=== PATIENT | male | born 1990 | race Caucasian/White ===

== ENCOUNTER 2018-02-28 07:02 | Emergency (ER) | payer OTHER, SELFPAY ==
[2018-02-28] MEDS ORDERED: DOXYCYCLINE 100 MG CAP PO ONE (07:58)
[2018-02-28] MEDS ORDERED: HYDROCODONE/APAP 10/325 TAB ONE (07:58)
--- NOTE | 2018-02-28 08:55 | ER ---
Nurse's Notes [facility] Name: Richard Calderon Age: 27 yrs Sex: Male : 1990 Arrival Date: 02/28/2018 Time: 07:04 Bed 8 Private MD: Jus Velez E Diagnosis: Epididymitis Presentation: 02/28 07:19 Presenting complaint: Patient states: Left testicular pain since this morning, was here 7 April 2016 for same thing, it was acute epididymitis and it feels the same. Transition of care: patient was not received from another setting of care. Onset of symptoms was February 28, 2018. Risk Assessment: Do you want to hurt yourself or someone else? Patient reports no desire to harm self or others. Initial Sepsis Screen: Does the patient meet any 2 criteria? No. Patient's initial sepsis screen is negative. Does the patient have a suspected source of infection? No. Patient's initial sepsis screen is negative. Care prior to arrival: None. 07:19 Method Of Arrival: Ambulatory [facility] er 07:19 Acuity: WILBER 3 jl7 Triage Assessment: 07:21 General: Appears uncomfortable, Behavior is calm, cooperative, appropriate for age. jl7 Pain: Complains of pain in left testicle Pain currently is 8 out of 10 on a pain scale. Historical: - Allergies: 07:21 Sulfa (Sulfonamide Antibiotics); jl7 - Home Meds: 07:21 Lisinopril Oral [Active]; jl7 - PMHx: 07:21 High Cholesterol; Hypertension; seasonal allergies; jl7 - PSHx: 07:21 None; jl7 - Immunization history:: Adult Immunizations not up to date. - Social history:: Smoking status: Patient uses tobacco products, smokes one pack cigarettes per day. - Ebola Screening: : No symptoms or risks identified at this time. Screenin:45 Abuse screen: Denies threats or abuse. Denies injuries from another. Nutritional hb screening: No deficits noted. Tuberculosis screening: No symptoms or risk factors identified. Fall Risk None identified. Assessment: 07:45 General: Appears in no apparent distress. Behavior is calm, cooperative. Pain: Pain hb currently is 8 out of 10 on a pain scale. Neuro: Level of Consciousness is awake, alert, obeys commands, Oriented to person, place, time, situation. Cardiovascular: Capillary refill < 3 seconds Patient's skin is warm and dry. Respiratory: Airway is patent Trachea midline Respiratory effort is even, unlabored, Respiratory pattern is regular, symmetrical. GI: No deficits noted. No signs and/or symptoms were reported involving the gastrointestinal system. : No deficits noted. No signs and/or symptoms were reported regarding the genitourinary system. EENT: No signs and/or symptoms were reported regarding the EENT system. Derm: Skin is pink, warm \T\ dry. Musculoskeletal: No signs and/or symptoms reported regarding the musculoskeletal system. 08:30 Reassessment: Patient appears in no apparent distress at this time. No changes from hb previously documented assessment. Patient and/or family updated on plan of care and expected duration. Pain level reassessed. Patient is alert, oriented x 3, equal unlabored respirations, skin warm/dry/pink. Vital Signs: 07:21 BP 156 / 107; Pulse 77; Resp 16; Temp 98.7; Pulse Ox 98% ; Weight 97.52 kg; Height 6 jl7 ft. (182.88 cm); Pain 8/10; 08:30 BP 145 / 88; Pulse 78; Resp 16; Pulse Ox 100% on R/A; hb 07:21 Body Mass Index 29.16 (97.52 kg, 182.88 cm) jl7 ED Course: 07:04 Patient arrived in ED. am2 07:04 Jus Velez MD is Private Physician. am2 07:21 Triage completed. jl7 07:21 Arm band placed on right wrist. jl7 07:27 [facility] jr8 07:27 Nicholas Salgado MD is Attending Physician. jr8 07:45 Patient has correct armband on for positive identification. Placed in gown. Bed in low hb position. Call light in reach. Side rails up X 1. 07:55 Patient taken to ultrasound. via wheelchair. aa4 07:59 Urine collected: clean catch specimen, clear. dh3 08:20 Ultrasound completed. Patient tolerated well. Patient moved back from ultrasound. aa4 08:53 Alivia Schaeffer MD is Referral Physician. jr8 09:23 No provider procedures requiring assistance completed. Patient did not have IV access hb during this emergency room visit. Administered Medications: 07:59 Drug: [place] 10 mg-325 mg 1 tabs Route: PO; hb 07:59 Drug: Doxycycline 100 mg Route: PO; Outcome: 08:54 Discharge ordered by MD. pathak 09:23 Discharged to home ambulatory. hb 09:23 Condition: stable 09:23 Discharge instructions given to patient, Instructed on discharge instructions, follow up and referral plans. medication usage, Demonstrated understanding of instructions, follow-up care, medications, Prescriptions given X 3. 09:25 Patient left the ED. Signatures: Veena Leal4 Sravan Torre PA PA jr8 Rachel Liriano RN RN Pema Novak RN RN jl7 Veena Sumner am2 Raven Song 3 Corrections: (The following items were deleted from the chart) 07:26 07:19 Presenting complaint: Patient states: Left testicular pain since this morning, jl7 was here April 2016 for same thing, it was acute epididymis and it feels the same jl7
--- NOTE | 2018-02-28 08:56 | EDPHYS ---
Physician Documentation [facility] Name: Richard Calderon Age: 27 yrs Sex: Male : 1990 Arrival Date: 02/28/2018 Time: 07:04 Bed 8 Private MD: Jus Velez E ED Physician Nicholas Salgado HPI: 02/28 07:49 This 27 yrs old Male presents to ER via Ambulatory with complaints of jr8 Testicular Pain. 07:49 The patient presents with scrotal pain, of the left side, in the area of the jr8 epidydimis, with swelling, without erythema, tenderness, that is moderate, in the area of the epidydimis. Onset: The symptoms/episode began/occurred acutely, today. Modifying factors: The symptoms are alleviated by nothing, the symptoms are aggravated by movement, pressure. Associated signs and symptoms: The patient has no apparent associated signs or symptoms. Severity of symptoms: At their worst the symptoms were moderate, in the emergency department the symptoms are unchanged. The patient has experienced a previous episode. The patient has not recently seen a physician. Has had epididymitis in past. Stated that he had sudden onset of testicular pain on left side. Thinks he may have it again. Denies dysuria or trouble urinating . Historical: - Allergies: 07:21 Sulfa (Sulfonamide Antibiotics); jl7 - Home Meds: 07:21 Lisinopril Oral [Active]; jl7 - PMHx: 07:21 High Cholesterol; Hypertension; seasonal allergies; jl7 - PSHx: 07:21 None; jl7 - Immunization history:: Adult Immunizations not up to date. - Social history:: Smoking status: Patient uses tobacco products, smokes one pack cigarettes per day. - Ebola Screening: : No symptoms or risks identified at this time. ROS: 07:49 Eyes: Negative for injury, pain, redness, and discharge, ENT: Negative for injury, jr8 pain, and discharge, Neck: Negative for injury, pain, and swelling, Cardiovascular: Negative for chest pain, palpitations, and edema, Respiratory: Negative for shortness of breath, cough, wheezing, and pleuritic chest pain, Abdomen/GI: Negative for abdominal pain, nausea, vomiting, diarrhea, and constipation, Back: Negative for injury and pain, MS/Extremity: Negative for injury and deformity, Skin: Negative for injury, rash, and discoloration, Neuro: Negative for headache, weakness, numbness, tingling, and seizure. 07:49 : Positive for testicular pain Negative for urinary symptoms, penile discharge, penile pain. Exam: 07:49 Cardiovascular: Regular rate and rhythm with a normal S1 and S2. No gallops, murmurs, jr8 or rubs. Normal PMI, no JVD. No pulse deficits. Respiratory: Lungs have equal breath sounds bilaterally, clear to auscultation and percussion. No rales, rhonchi or wheezes noted. No increased work of breathing, no retractions or nasal flaring. Abdomen/GI: Soft, non-tender, with normal bowel sounds. No distension or tympany. No guarding or rebound. No evidence of tenderness throughout. Back: No spinal tenderness. No costovertebral tenderness. Full range of motion. Skin: Warm, dry with normal turgor. Normal color with no rashes, no lesions, and no evidence of cellulitis. MS/ Extremity: Pulses equal, no cyanosis. Neurovascular intact. Full, normal range of motion. Neuro: Awake and alert, GCS 15, oriented to person, place, time, and situation. Cranial nerves II-XII grossly intact. Motor strength 5/5 in all extremities. Sensory grossly intact. Cerebellar exam normal. Normal gait. 07:49 : CVA tenderness, is absent, Male external genitalia: swelling and tenderness to left testicle. Right testicle of normal appearance and without tenderness. uncircumcised. No penile abnormality noted . Vital Signs: 07:21 BP 156 / 107; Pulse 77; Resp 16; Temp 98.7; Pulse Ox 98% ; Weight 97.52 kg; Height 6 jl7 ft. (182.88 cm); Pain 8/10; 08:30 BP 145 / 88; Pulse 78; Resp 16; Pulse Ox 100% on R/A; hb 07:21 Body Mass Index 29.16 (97.52 kg, 182.88 cm) jl7 MDM: 07:28 Patient medically screened. jr8 08:53 Data reviewed: vital signs, nurses notes, lab test result(s), radiologic studies, jr8 ultrasound. Data interpreted: Pulse oximetry: on room air is 98 %. Interpretation: normal. Counseling: I had a detailed discussion with the patient and/or guardian regarding: the historical points, exam findings, and any diagnostic results supporting the discharge/admit diagnosis, lab results, radiology results, the need for outpatient follow up, a urologist, to return to the emergency department if symptoms worsen or persist or if there are any questions or concerns that arise at home. 02/28 08:09 Order name: Urine Dipstick--Ancillary (enter results) bd 02/28 09:01 Order name: Urine Dipstick-Ancillary; Complete Time: 15:40 [facility] 02/28 07:39 Order name: US Scrotum Testicles jr8 02/28 09:09 Order name: US; Complete Time: 15:40 [facility] 02/28 07:40 Order name: Urine Dipstick-Ancillary (obtain specimen); Complete Time: 08:00 jr8 Administered Medications: 07:59 Drug: [place] 10 mg-325 mg 1 tabs Route: PO; hb 07:59 Drug: Doxycycline 100 mg Route: PO; hb Disposition: 15:27 Co-signature as Attending Physician, Nicholas Salgado MD I agree with the assessment and britni plan of care. Disposition: 02/28/18 08:54 Discharged to Home. Impression: Epididymitis. - Condition is Stable. - Discharge Instructions: Epididymitis. - Prescriptions for Ibuprofen 800 mg Oral Tablet - take 1 tablet by ORAL route every 12 hours As needed take with food; 20 tablet. Tylenol- Codeine #3 300-30 mg Oral Tablet - take 2 tablets by ORAL route every 6 hours As needed; 20 tablet. Doxycycline Monohydrate 100 mg Oral Tablet - take 1 tablet by ORAL route every 12 hours for 10 days; 20 tablet. - Work release form, Medication Reconciliation Form, Thank You Letter, Antibiotic Education, Prescription Opioid Use form. - Follow up: Alivia Schaeffer MD; When: 1 week; Reason: Recheck today's complaints, Continuance of care, Re-evaluation by your physician. - Problem is new. - Symptoms have improved. Signatures: Dispatcher [employer] Nicholas Skinner MD MD cha Roszak, Josh, PA PA jr8 Rachel Liriano, RN RN Pema Becker RN RN jl7 Corrections: (The following items were deleted from the chart) 09:25 08:54 02/28/2018 08:54 Discharged to Home. Impression: Epididymitis. Condition is hb Stable. Forms are Medication Reconciliation Form, Thank You Letter, Antibiotic Education, Prescription Opioid Use. Follow up: Alivia Schaeffer; When: 1 week; Reason: Recheck today's complaints, Continuance of care, Re-evaluation by your physician. Problem is new. Symptoms have improved. jr8
[2018-02-28 09:01] LABS: Urine Blood TRACE (NEG); Urine Glucose NEGATIVE (NEG); Urine Protein NEGATIVE (NEG); Urine Specific Gravity >1.030 (1.005-1.030)
--- NOTE | 2018-02-28 09:08 | RAD REPORT ---
EXAM DESCRIPTION: US - Scrotum Testicles - 02/28/2018 8:16 am CLINICAL HISTORY: left testicle pain COMPARISON: Scrotum Testicles dated 04/13/2016 FINDINGS: The right testicle 4.5 x 2.9 x 2.7 cm. No intratesticular masses or evidence of testicular torsion. The left testicle 4.6 x 3.1 x 2.7 cm. No intratesticular masses or evidence of testicular torsion. The left epididymis is enlarged with increased blood flow. Small amount of free fluid is seen adjacent to the left testicle. IMPRESSION: Left epididymitis is suspected.
[2018-02-28 09:29] VITALS: TEMP 98.7
[2018-02-28 09:30] VITALS: BP 145/88; O2SAT 100
== END 2018-02-28 09:25 | disposition home or self-care (01) ==
LOC: ER 07:02
DX: N45.1 Epididymitis (principal); I10 Essential (primary) hypertension; F17.210 Nicotine dependence, cigarettes, uncomplicated; Z88.2 Allergy status to sulfonamides
CPT/HCPCS: 76870; 81003; 99284

== ENCOUNTER 2019-12-29 23:35 | Emergency (ER) | payer SELFPAY ==
--- NOTE | 2019-12-30 00:39 | EDPHYS ---
Physician Documentation [facility] Name: Richard Calderon Age: 29 yrs Sex: Male : 1990 Arrival Date: 12/29/2019 Time: 23:38 Bed 25 Private MD: ED Physician Rome Srivastava HPI: 12/29 00:31 This 29 yrs old Male presents to ER via Ambulatory with complaints of Neck cp Pain, >24Hrs Old. 00:31 The patient or guardian complains of pain, that is acute. The symptoms are located on cp the left lateral anterior neck. 00:31 Onset: The symptoms/episode began/occurred today. Context: The neck injury/problem cp resulted from from unknown cause. Associated signs and symptoms: Pertinent positives: headache, Pertinent negatives: fever, numbness, sore throat, dysphagia. The pain does not radiate. Historical: - Allergies: 00:16 Sulfa (Sulfonamide Antibiotics); jv1 - Home Meds: 00:16 lisinopril 10 mg oral tab once daily for Hypertension [Active]; jv1 - PMHx: 00:16 High Cholesterol; Hypertension; seasonal allergies; jv1 - PSHx: 00:16 Knee surgery; jv1 - Immunization history:: Adult Immunizations not up to date. - Social history:: Smoking status: Patient uses vapes. ROS: 00:32 Eyes: Negative for injury, pain, redness, and discharge. cp 00:32 Constitutional: Negative for body aches, chills, fever, poor PO intake. 00:32 ENT: Negative for drainage from ear(s), ear pain, sore throat, difficulty swallowing, difficulty handling secretions. 00:32 Neck: Positive for pain at rest, tenderness, of the left lateral anterior neck, Negative for injury or acute deformity, stiffness. 00:32 Cardiovascular: Negative for chest pain. 00:32 Respiratory: Negative for cough, shortness of breath, wheezing. 00:32 Abdomen/GI: Negative for abdominal pain, nausea, vomiting, and diarrhea. 00:32 Skin: Negative for rash. 00:32 Neuro: Positive for headache, Negative for altered mental status, weakness. 00:32 All other systems are negative. Exam: 00:34 Head/Face: Normocephalic, atraumatic. cp 00:34 Constitutional: The patient appears in no acute distress, alert, awake, non-toxic, well developed, well nourished. 00:34 Eyes: Periorbital structures: appear normal, Conjunctiva: normal, no exudate, no injection, Sclera: no appreciated abnormality, Lids and lashes: appear normal, bilaterally. 00:34 ENT: External ear(s): are unremarkable, Ear canal(s): are normal, clear, TM's: dullness, bilaterally, Nose: is normal, Mouth: Lips: moist, Oral mucosa: pink and intact, moist, Posterior pharynx: is normal, airway is patent, no erythema, no exudate, normal sized tonsils, Voice: is normal. 00:34 Neck: ROM/movement: pain, that is mild, left lateral anterior neck. limited range of motion, is not appreciated, nuchal rigidity, is not appreciated, Lymph nodes: no appreciated lymphadenopathy. 00:34 Chest/axilla: Inspection: normal. 00:34 Cardiovascular: Rate: normal. 00:34 Respiratory: the patient does not display signs of respiratory distress, Respirations: normal, no use of accessory muscles, no retractions, labored breathing, is not present. 00:34 Skin: no rash present. Vital Signs: 00:09 BP 121 / 92; Pulse 85; Resp 18; Temp 98.2; Pulse Ox 96% ; Pain 1/10; jv1 00:12 BP 121 / 92; Pulse 85; Resp 18; Temp 98.2; Pulse Ox 96% ; Pain 1/10; jv1 00:50 BP 126 / 79; Pulse 80; Resp 18; Temp 98.1; Pulse Ox 99% ; Pain 1/10; jv1 MDM: 00:30 Patient medically screened. cp 00:36 Differential diagnosis: enlarged lymph node, dental infection, strep throat. cp 00:37 Data reviewed: vital signs, nurses notes, and as a result, I will discharge patient. cp Administered Medications: No medications were administered Disposition: 05:09 Co-signature as Attending Physician, Rome Srivastava MD. mh7 Disposition: 12/30/19 00:38 Discharged to Home. Impression: Neck Pain. - Condition is Stable. - Discharge Instructions: Musculoskeletal Pain. - Prescriptions for Ibuprofen 800 mg Oral Tablet - take 1 tablet by ORAL route every 8 hours As needed take with food; 30 tablet. - Medication Reconciliation Form, Thank You Letter, Antibiotic Education, Prescription Opioid Use form. - Follow up: Private Physician; When: 2 - 3 days; Reason: Recheck today's complaints. - Problem is new. - Symptoms are unchanged. Signatures: Nicholas Davis PA PA cp Vicente, Joyce, RN RN jv1 Rome Srivastava MD MD mh7 Corrections: (The following items were deleted from the chart) 00:51 00:38 12/30/2019 00:38 Discharged to Home. Impression: Neck Pain. Condition is Stable. jv1 Forms are Medication Reconciliation Form, Thank You Letter, Antibiotic Education, Prescription Opioid Use. Follow up: Private Physician; When: 2 - 3 days; Reason: Recheck today's complaints. Problem is new. Symptoms are unchanged. cp
--- NOTE | 2019-12-30 00:39 | ER ---
Nurse's Notes [facility] Name: Richard Calderon Age: 29 yrs Sex: Male : 1990 Arrival Date: 12/29/2019 Time: 23:38 Bed 25 Private MD: Diagnosis: Neck Pain Presentation: 12/29 00:09 Chief complaint: Patient states: pain in the left neck 4/10 highest, also some dizzy jv1 spells per pt report. Coronavirus screen: Client denies travel out of the [place] in the last 14 days. At this time, the client does not indicate any symptoms associated with coronavirus-19. Ebola Screen: Patient negative for fever greater than or equal to 101.5 degrees Fahrenheit, and additional compatible Ebola Virus Disease symptoms Patient denies exposure to infectious person. Patient denies travel to an Ebola-affected area in the 21 days before illness onset. No symptoms or risks identified at this time. Initial Sepsis Screen: Does the patient meet any 2 criteria? No. Patient's initial sepsis screen is negative. Does the patient have a suspected source of infection? No. Patient's initial sepsis screen is negative. Risk Assessment: Do you want to hurt yourself or someone else? Patient reports no desire to harm self or others. Onset of symptoms was December 29, 2019. 00:09 Method Of Arrival: Ambulatory jv1 00:09 Acuity: WILBER 4 jv1 Historical: - Allergies: 00:16 Sulfa (Sulfonamide Antibiotics); jv1 - Home Meds: 00:16 lisinopril 10 mg oral tab once daily for Hypertension [Active]; jv1 - PMHx: 00:16 High Cholesterol; Hypertension; seasonal allergies; jv1 - PSHx: 00:16 Knee surgery; jv1 - Immunization history:: Adult Immunizations not up to date. - Social history:: Smoking status: Patient uses vapes. Screenin:16 Abuse screen: Denies threats or abuse. Nutritional screening: No deficits noted. jv1 Tuberculosis screening: No symptoms or risk factors identified. Fall Risk None identified. Assessment: 00:12 General: Appears in no apparent distress. well groomed, Behavior is calm, cooperative, jv1 appropriate for age. Pain: Complains of pain in left side of the neck Pain does not radiate. Pain currently is 1 out of 10 on a pain scale. Quality of pain is described as aching, Pain began 1 day ago. Neuro: Level of Consciousness is awake, alert, obeys commands, Oriented to person, place, time, situation, Appropriate for age Contract Designer are equal bilaterally Moves all extremities. Gait is steady, Speech is normal, Facial symmetry appears normal, Reports intermittent episodes of dizziness. Cardiovascular: Denies chest pain, Heart tones S1 S2 present Capillary refill < 3 seconds Pulses are all present. Rhythm is regular. Respiratory: Airway is patent. GI: Abdomen is round non-distended, Bowel sounds present X 4 quads. Abd is soft and non tender. : No signs and/or symptoms were reported regarding the genitourinary system. EENT: No signs and/or symptoms were reported regarding the EENT system. Derm: Skin is intact, is healthy with good turgor, Skin is pink, warm \T\ dry. Musculoskeletal: Circulation, motion, and sensation intact. Capillary refill < 3 seconds. 00:20 Reassessment: provider in the room with pt. jv1 00:51 Reassessment: Patient appears in no apparent distress at this time. Patient is alert, jv1 oriented x 3, equal unlabored respirations, skin warm/dry/pink. Patient denies pain at this time. Patient states feeling better. Vital Signs: 00:09 BP 121 / 92; Pulse 85; Resp 18; Temp 98.2; Pulse Ox 96% ; Pain 1/10; jv1 00:12 BP 121 / 92; Pulse 85; Resp 18; Temp 98.2; Pulse Ox 96% ; Pain 1/10; jv1 00:50 BP 126 / 79; Pulse 80; Resp 18; Temp 98.1; Pulse Ox 99% ; Pain 1/10; jv1 ED Course: 12/28 23:38 Patient arrived in ED. bp1 12/29 00:06 Nicholas Davis PA is PHCP. cp 00:06 Rome Srivastava MD is Attending Physician. cp 00:11 Triage completed. jv1 00:17 Arm band placed on right wrist. jv1 00:17 Patient has correct armband on for positive identification. Bed in low position. Call jv1 light in reach. Side rails up X 1. 00:40 No provider procedures requiring assistance completed. jv1 00:50 Patient did not have IV access during this emergency room visit. IV discontinued. jv1 Administered Medications: No medications were administered Outcome: 00:38 Discharge ordered by . sandra 00:50 Discharged to home ambulatory. jv1 00:50 Condition: stable 00:50 Discharge instructions given to patient, Instructed on discharge instructions, follow up and referral plans. medication usage, Demonstrated understanding of instructions, follow-up care, medications, Prescriptions given X 1. 00:51 Patient left the ED. jv1 Signatures: Nicholas Davis PA PA cp Vicente, Joyce, RN RN jv1 Kandis Padilla [facility]
[2019-12-30 01:15] VITALS: BP 126/79; TEMP 98.1; O2SAT 99
== END 2019-12-30 00:51 | disposition home or self-care (01) ==
LOC: ER 23:35
DX: M54.2 Cervicalgia (principal); I10 Essential (primary) hypertension; E78.00 Pure hypercholesterolemia, unspecified; J30.2 Other seasonal allergic rhinitis; Z72.0 Tobacco use; Z88.2 Allergy status to sulfonamides
CPT/HCPCS: 99282

== ENCOUNTER 2020-03-23 02:54 | Emergency (ER) | payer SELFPAY ==
[2020-03-23] MEDS ORDERED: KETOROLAC 30 MG/ML INJ ONE (03:26)
[2020-03-23] MEDS ORDERED: HYDROCODONE/APAP 5/325 MG TAB ONE (03:56)
--- NOTE | 2020-03-23 07:40 | ER ---
Nurse's Notes [facility] Name: Richard Calderon Age: 29 yrs Sex: Male : 1990 Arrival Date: 03/23/2020 Time: 02:55 Bed 7 Private MD: Diagnosis: Epididymitis;Hydrocele, unspecified Presentation: 03/23 03:04 Chief complaint: Patient states: left testicular pain and swelling. Coronavirus screen: rv Client denies travel out of the [place] in the last 14 days. Ebola Screen: No symptoms or risks identified at this time. Initial Sepsis Screen: Does the patient meet any 2 criteria? No. Patient's initial sepsis screen is negative. Does the patient have a suspected source of infection? No. Patient's initial sepsis screen is negative. Risk Assessment: Do you want to hurt yourself or someone else? Patient reports no desire to harm self or others. Onset of symptoms was March 23, 2020 at 02:00. 03:04 Method Of Arrival: Wheelchair rv 03:04 Acuity: WILBER 3 rv Triage Assessment: 03:06 General: Appears uncomfortable, Behavior is calm, cooperative. Pain: Complains of pain rv in pelvis. EENT: No signs and/or symptoms were reported regarding the EENT system. Neuro: Level of Consciousness is awake, alert, obeys commands, Oriented to person, place, time, situation. Cardiovascular: Patient's skin is warm and dry. Respiratory: Airway is patent Respiratory effort is even, unlabored. Derm: Skin is intact. Musculoskeletal:. Historical: - Allergies: 03:06 Sulfa (Sulfonamide Antibiotics); rv - PMHx: 03:06 High Cholesterol; Hypertension; seasonal allergies; rv - PSHx: 03:06 None; rv - Immunization history:: Adult Immunizations up to date. - Social history:: Smoking status: Reported history of juuling and/or vaping. Screenin:07 Abuse screen: Denies threats or abuse. Denies injuries from another. Nutritional rv screening: No deficits noted. Tuberculosis screening: No symptoms or risk factors identified. Fall Risk None identified. Assessment: 03:49 Reassessment: patient is still in pain, 10/18. referred [address] Pierce, ordered [place] PO. rv given as ordered. 05:12 Reassessment: patient is back from ultrasound, tolerated well. awaiting official rv result. pain is decreased. 07:13 Reassessment: Awaiting urine sample and US results, pt updated. jl7 07:34 Reassessment: Dr. Salgado at bedside discussing results and POC. jl7 Vital Signs: 03:04 BP 151 / 97; Pulse 81; Resp 17; Temp 98.6; Pulse Ox 97% ; Weight 99.79 kg; Height 5 ft. rv 11 in. (180.34 cm); Pain 6/10; 03:54 BP 126 / 90; Pulse 79; Resp 17; Pulse Ox 97% on R/A; rv 05:13 BP 141 / 99; Pulse 76; Resp 16; Pulse Ox 100% on R/A; rv 06:21 BP 140 / 96; Pulse 77; Resp 16; Pulse Ox 98% on R/A; rv 07:13 BP 121 / 83; Pulse 84; Resp 17; Pulse Ox 100% ; jl7 03:04 Body Mass Index 30.68 (99.79 kg, 180.34 cm) rv ED Course: 02:55 Patient arrived in ED. am2 02:55 Ian Hartmann RN is Primary Nurse. rv 02:56 Jacob Pierce MD is Attending Physician. tw4 03:06 Triage completed. rv 03:07 Arm band placed on right wrist. Patient placed in the treatment room, on a stretcher, rv Patient notified of wait time. 03:08 Patient has correct armband on for positive identification. Pulse ox on. NIBP on. rv 05:17 US Scrotum Testicles In Process Unspecified. EDMS 07:00 Report received from MYA [place]. jl7 07:16 Attending Physician role handed off by Jacob Pierce MD britni 07:16 Nicholas Salgado MD is Attending Physician. britni 07:30 Urine collected: clean catch specimen, clear. jl7 07:38 Kaleb Coronel MD is Referral Physician. britni 07:50 No provider procedures requiring assistance completed. Patient did not have IV access jl7 during this emergency room visit. Administered Medications: 03:16 Drug: TORadol 60 mg Route: IM; Site: right deltoid; rv 03:34 Follow up: Response: No adverse reaction; Pain is unchanged, physician notified rv 03:45 Drug: [place] 5 mg-325 mg 1 tabs {Note: rass 0.} Route: PO; rv 05:13 Follow up: Response: No adverse reaction; Marked relief of symptoms; Pain is decreased; rv RASS: Drowsy (-1) 07:43 Drug: Rocephin (cefTRIAXone) 1 grams Route: IM; Site: right ventrogluteal; 7 07:56 Follow up: Response: No adverse reaction jl7 07:45 Drug: Zithromax 1 grams Route: PO; jl7 07:56 Follow up: Response: No adverse reaction jl Outcome: 07:39 Discharge ordered by . britni 07:56 Discharged to home ambulatory. jl7 07:56 Condition: stable 07:56 Discharge instructions given to patient, Instructed on discharge instructions, follow up and referral plans. medication usage, Demonstrated understanding of instructions, follow-up care, Prescriptions given X 2. 07:56 Patient left the ED. jl7 Signatures: Dispatcher [employer] EDMS Nicholas Salgado MD MD cha Leal, Jahala, RN RN jl7 Veena Sumner am2 Jacob Pierce MD MD tw4 Ian Hartmann, RN RN rv
--- NOTE | 2020-03-23 07:40 | EDPHYS ---
Physician Documentation [facility] Name: Richard Calderon Age: 29 yrs Sex: Male : 1990 Arrival Date: 03/23/2020 Time: 02:55 Bed 7 Private MD: JEAN Physician Nicholas Salgado HPI: 03/23 03:19 This 29 yrs old Male presents to ER via Wheelchair with complaints of tw4 Testicular Pain. 03:19 The patient presents with scrotal pain. Onset: The symptoms/episode began/occurred tw4 today. Modifying factors: The symptoms are alleviated by nothing, the symptoms are aggravated by nothing. The patient has not experienced similar symptoms in the past. Historical: - Allergies: 03:06 Sulfa (Sulfonamide Antibiotics); rv - PMHx: 03:06 High Cholesterol; Hypertension; seasonal allergies; rv - PSHx: 03:06 None; rv - Immunization history:: Adult Immunizations up to date. - Social history:: Smoking status: Reported history of juuling and/or vaping. ROS: 03:19 Constitutional: Negative for fever, chills, and weight loss, Eyes: Negative for injury, tw4 pain, redness, and discharge, Cardiovascular: Negative for chest pain, palpitations, and edema, Respiratory: Negative for shortness of breath, cough, wheezing, and pleuritic chest pain, Abdomen/GI: Negative for abdominal pain, nausea, vomiting, diarrhea, and constipation, Back: Negative for injury and pain, Skin: Negative for injury, rash, and discoloration, Neuro: Negative for headache, weakness, numbness, tingling, and seizure. Exam: 03:19 Constitutional: This is a well developed, well nourished patient who is awake, alert, tw4 and in no acute distress. Head/Face: Normocephalic, atraumatic. Cardiovascular: Regular rate and rhythm with a normal S1 and S2. No gallops, murmurs, or rubs. Normal PMI, no JVD. No pulse deficits. Respiratory: Lungs have equal breath sounds bilaterally, clear to auscultation and percussion. No rales, rhonchi or wheezes noted. No increased work of breathing, no retractions or nasal flaring. Abdomen/GI: Soft, non-tender, with normal bowel sounds. No distension or tympany. No guarding or rebound. No evidence of tenderness throughout. Back: No spinal tenderness. No costovertebral tenderness. Full range of motion. 03:45 : Male external genitalia: tenderness, of the left testicle is noted. tw4 Vital Signs: 03:04 BP 151 / 97; Pulse 81; Resp 17; Temp 98.6; Pulse Ox 97% ; Weight 99.79 kg; Height 5 ft. rv 11 in. (180.34 cm); Pain 6/10; 03:54 BP 126 / 90; Pulse 79; Resp 17; Pulse Ox 97% on R/A; rv 05:13 BP 141 / 99; Pulse 76; Resp 16; Pulse Ox 100% on R/A; rv 06:21 BP 140 / 96; Pulse 77; Resp 16; Pulse Ox 98% on R/A; rv 07:13 BP 121 / 83; Pulse 84; Resp 17; Pulse Ox 100% ; jl7 03:04 Body Mass Index 30.68 (99.79 kg, 180.34 cm) rv MDM: 02:56 Patient medically screened. tw4 03:19 Differential diagnosis: nonspecific abdominal pain, appendicitis, urinary retention. tw4 Data reviewed: vital signs, nurses notes. Data interpreted: Pulse oximetry: Interpretation: normal. Counseling: I had a detailed discussion with the patient and/or guardian regarding: the historical points, exam findings, and any diagnostic results supporting the discharge/admit diagnosis. 07:36 ED course: abx treatment, nsaids, rest, elevation/support, follow up uro. [facility] 03/23 07:36 Order name: Urine Culture [facility] 03/23 02:57 Order name: US Scrotum Testicles [facility] 03/23 02:57 Order name: Urine Dipstick-Ancillary (obtain specimen); Complete Time: 07:34 tw4 Administered Medications: 03:16 Drug: TORadol 60 mg Route: IM; Site: right deltoid; rv 03:34 Follow up: Response: No adverse reaction; Pain is unchanged, physician notified rv 03:45 Drug: [place] 5 mg-325 mg 1 tabs {Note: rass 0.} Route: PO; rv 05:13 Follow up: Response: No adverse reaction; Marked relief of symptoms; Pain is decreased; rv RASS: Drowsy (-1) 07:43 Drug: Rocephin (cefTRIAXone) 1 grams Route: IM; Site: right ventrogluteal; jl7 07:56 Follow up: Response: No adverse reaction jl7 07:45 Drug: Zithromax 1 grams Route: PO; 7 07:56 Follow up: Response: No adverse reaction jl7 Disposition: 03/23/20 07:39 Discharged to Home. Impression: Epididymitis, Hydrocele, unspecified. - Condition is Stable. - Discharge Instructions: Epididymitis, Testicular Self-Exam, Hydrocele, Adult. - Prescriptions for Ibuprofen 600 mg Oral Tablet - take 1 tablet by ORAL route every 6 hours As needed take with food; 20 tablet. Doxycycline Hyclate 100 mg Oral Tablet - take 1 tablet by ORAL route every 12 hours; 20 tablet. - Medication Reconciliation Form, Thank You Letter, Antibiotic Education, Prescription Opioid Use form. - Follow up: Private Physician; When: 2 - 3 days; Reason: Recheck today's complaints, Continuance of care, Re-evaluation by your physician. Follow up: Kaleb Coronel MD; When: 2 - 3 days; Reason: Recheck today's complaints, Re-evaluation by your physician. - Problem is new. - Symptoms have improved. Signatures: Dispatcher [employer] EDMS Nicholas Salgado MD MD cha Leal, Jahala, RN RN jl7 Jacob Pierce MD MD tw4 Ian Hartmann, RN RN rv Corrections: (The following items were deleted from the chart) 07:56 07:39 03/23/2020 07:39 Discharged to Home. Impression: Epididymitis; Hydrocele, jl7 unspecified. Condition is Stable. Forms are Medication Reconciliation Form, Thank You Letter, Antibiotic Education, Prescription Opioid Use. Follow up: Private Physician; When: 2 - 3 days; Reason: Recheck today's complaints, Continuance of care, Re-evaluation by your physician. Follow up: Kaleb Coronel; When: 2 - 3 days; Reason: Recheck today's complaints, Re-evaluation by your physician. Problem is new. Symptoms have improved. britni
[2020-03-23] MEDS ORDERED: WATER FOR INJ,STERILE 10 ML ONE (07:51)
[2020-03-23] MEDS ORDERED: AZITHROMYCIN 250 MG TAB ONE (07:51)
[2020-03-23] MEDS ORDERED: CEFTRIAXONE 1000 MG/VIAL ONE (07:51)
--- NOTE | 2020-03-23 10:58 | RAD REPORT ---
EXAM DESCRIPTION: US - Scrotum Testicles - 03/23/2020 5:16 am CLINICAL HISTORY: PAIN COMPARISON: Scrotum Testicles dated 02/28/2018 FINDINGS: Preliminary findings were provided at the time of the study. Small left-sided hydrocele is present. Doppler evaluation shows a normal, symmetric blood flow patter n in each testicle. No focal testicular mass lesions seen. Left epididymis is enlarged and hyperemic relative to the right. Preliminary findings provided at the time of the study. IMPRESSION: Enlarged and hyperemic left epididymis suspicious for epididymitis. No testicular abnormalities identified. Small left hydrocele.
[2020-03-26 22:49] VITALS: TEMP 98.6
[2020-03-26 22:57] VITALS: BP 121/83; O2SAT 100
== END 2020-03-23 07:56 | disposition home or self-care (01) ==
LOC: ER 02:54
DX: N45.1 Epididymitis (principal); N43.3 Hydrocele, unspecified; I10 Essential (primary) hypertension; Z88.2 Allergy status to sulfonamides
CPT/HCPCS: 76870; 87086; 87088; 96372; 99284

== ENCOUNTER 2021-10-16 09:28 | Emergency (ER) | payer BC, SELFPAY ==
--- NOTE | 2021-10-16 10:03 | RAD REPORT ---
EXAM DESCRIPTION: RAD - Chest Single View - 10/16/2021 9:47 am CLINICAL HISTORY: CHEST PAIN Chest pain. COMPARISON: Chest Single View dated 09/07/2016; CHEST PA AND LAT 2 VIEW dated 08/26/2010 FINDINGS: Portable technique limits examination quality. The lungs are grossly clear. The heart is normal in size. No displaced fractures. IMPRESSION: No acute intrathoracic process suspected.
[2021-10-16 11:34] LABS: Absolute Lymphocytes (CBC) 1.9 K/uL (0.7-4.9); Hematocrit 44.7 % (39.6-49.0); Lymphocytes % 31.2 % (15.3-44.8); MCV 88.9 fL (80-100); MPV 7.2 fL (7.6-11.3); RBC Red Blood Cell Count 5.03 M/uL (4.33-5.43)
[2021-10-16] MEDS ORDERED: ASPIRIN 81 MG CHEWABLE TABLET ONE (11:40)
[2021-10-16] MEDS ORDERED: NA CHLORIDE 0.9% 1,000 ML ONE (11:40)
[2021-10-16 11:53] LABS: Potassium 3.6 mmol/L (3.5-5.1); Troponin High Sensitivity 7.7 pg/mL (<58.9)
--- NOTE | 2021-10-16 12:04 | ER ---
Nurse's Notes [facility] Name: Richard Calderon Age: 30 yrs Sex: Male : 1990 Arrival Date: 10/16/2021 Time: 09:33 Bed 14 Private MD: Diagnosis: Chest pain, unspecified;Kidney stone Presentation: 10/16 11:38 Chief complaint: Patient states: Left sided CP x 3 days, right flank pain x 3 weeks, jl7 had CT done today and was informed of right side kidney stone. Coronavirus screen: At this time, the client does not indicate any symptoms associated with coronavirus-19. Ebola Screen: No symptoms or risks identified at this time. Initial Sepsis Screen: Does the patient meet any 2 criteria? No. Patient's initial sepsis screen is negative. Does the patient have a suspected source of infection? No. Patient's initial sepsis screen is negative. Risk Assessment: Do you want to hurt yourself or someone else? Patient reports no desire to harm self or others. Onset of symptoms was October 13, 2021. Care prior to arrival: None. 11:38 Method Of Arrival: Ambulatory [facility] 11:38 Acuity: WILBER 3 jl7 Triage Assessment: 11:40 General: Appears in no apparent distress. uncomfortable, Behavior is calm, cooperative, jl7 appropriate for age. Pain: Complains of pain in right flank Pain currently is 2 out of 10 on a pain scale. at worst was 4 out of 10 on a pain scale. Pain: Complains of pain in left breast Pain currently is 2 out of 10 on a pain scale. at worst was 8 out of 10 on a pain scale. Neuro: Level of Consciousness is awake, alert, obeys commands, Oriented to person, place, time, situation. Cardiovascular: Patient's skin is warm and dry. Respiratory: Airway is patent Respiratory effort is even, unlabored, Respiratory pattern is regular, symmetrical. : Denies burning with urination. Derm: Skin is pink, warm \T\ dry. Historical: - Allergies: 11:40 Sulfa (Sulfonamide Antibiotics); jl7 - Home Meds: 11:40 amlodipine oral [Active]; atorvastatin oral [Active]; jl7 - PMHx: 11:40 High Cholesterol; Hypertension; seasonal allergies; jl7 - PSHx: 11:40 Right knee; jl7 - Immunization history:: Adult Immunizations not up to date. - Social history:: Smoking status: Patient denies any tobacco usage or history of. Screenin:25 Abuse screen: Denies threats or abuse. Denies injuries from another. Nutritional jg9 screening: No deficits noted. Tuberculosis screening: No symptoms or risk factors identified. Fall Risk None identified. Assessment: 12:00 Pain: Complains of pain in anterior aspect of left upper chest Pain does not radiate. jg9 Pain began. 12:00 Reassessment: Patient and/or family updated on plan of care and expected duration. Pain jg9 level reassessed. Patient is alert, oriented x 3, equal unlabored respirations, skin warm/dry/pink. patient resting in bed in no distress, still reports pain 3/10 to left chest with deep breathing-otherwise stable, vss. Vital Signs: 11:38 BP 146 / 107; Pulse 87; Resp 17; Temp 99; Pulse Ox 100% ; Weight 97.98 kg; Height 5 ft. jl7 11 in. (180.34 cm); Pain 2/10; 12:15 BP 124 / 88; Pulse 72; Resp 12 S; Pulse Ox 100% on R/A; Pain 3/10; jg9 11:38 Body Mass Index 30.13 (97.98 kg, 180.34 cm) jl7 ED Course: 09:33 Patient arrived in ED. am2 09:38 Cristino Marvin DO is Attending Physician. ms3 09:49 XRAY Chest (1 view) In Process Unspecified. EDMS 10:43 Patient has correct armband on for positive identification. mb7 10:43 EKG done, by ED staff, reviewed by Cristino Marvin DO. mb7 11:16 Inserted saline lock: 20 gauge in right antecubital area, using aseptic technique. tp1 Blood collected. 11:40 Triage completed. jl7 11:40 Arm band placed on right wrist. jl7 12:00 Client placed on continuous cardiac and pulse oximetry monitoring. NIBP monitoring jg9 applied. 12:00 No provider procedures requiring assistance completed. Patient maintains SpO2 jg9 saturation greater than 95% on room air. 12:03 Rolando Tobin MD is Referral Physician. ms3 12:24 Sutton, Macarena, RN is Primary Nurse. jg9 12:39 IV discontinued. jg9 Administered Medications: 11:37 Drug: Aspirin Chewable Tablet 324 mg Route: PO; 7 12:27 Follow up: Response: No adverse reaction jg9 11:37 Drug: NS 0.9% 1000 ml Route: IV; Rate: 1 bolus; Site: right antecubital; 7 12:27 Follow up: IV Status: Completed infusion; IV Intake: 800ml jg9 Medication: 12:26 VIS not applicable for this client. jg9 Intake: 12:27 IV: 800ml; Total: 800ml. jg9 Outcome: 12:04 Discharge ordered by . ms3 12:38 Discharged to home ambulatory. jg9 12:38 Condition: stable 12:38 Discharge instructions given to patient, Instructed on discharge instructions, follow up and referral plans. Demonstrated understanding of instructions, follow-up care. 12:39 Patient left the ED. jg9 Signatures: Dispatcher [employer] EDMS Pema Novak RN RN jl7 Veena Sumner am2 Cristino Marvin DO DO ms3 Stephanie Santana tp1 Radha Leger mb7 Macarena Sutton, RN RN jg9
--- NOTE | 2021-10-16 12:04 | EDPHYS ---
Physician Documentation [facility] Name: Richard Calderon Age: 30 yrs Sex: Male : 1990 Arrival Date: 10/16/2021 Time: 09:33 Bed 14 Private MD: ED Physician Cristino Marvin HPI: 10/16 12:04 This 30 yrs old Male presents to ER via Ambulatory with complaints of Chest Pain, Flank ms3 Pain. 12:04 The patient or guardian reports chest pain that is located primarily in the substernal ms3 area, anterior aspect of left upper chest. The pain does not radiate. Associated signs and symptoms: Pertinent negatives: cough, diaphoresis, nausea, vomiting. The chest pain is described as sharp. Duration: The patient or guardian reports a single episode, that is still ongoing, and unchanged. Modifying factors: The symptoms are alleviated by nothing. the symptoms are aggravated by nothing. Severity of pain: At its worst the pain was mild in the emergency department the pain is unchanged. Historical: - Allergies: 11:40 Sulfa (Sulfonamide Antibiotics); jl7 - Home Meds: 11:40 amlodipine oral [Active]; atorvastatin oral [Active]; jl7 - PMHx: 11:40 High Cholesterol; Hypertension; seasonal allergies; jl7 - PSHx: 11:40 Right knee; jl7 - Immunization history:: Adult Immunizations not up to date. - Social history:: Smoking status: Patient denies any tobacco usage or history of. ROS: 12:04 Constitutional: Negative for fever, and chills. Neck: Negative for injury, pain, and ms3 swelling, Respiratory: Negative for shortness of breath, cough, wheezing, and pleuritic chest pain, Abdomen/GI: Negative for abdominal pain, nausea, vomiting, diarrhea, and constipation, MS/Extremity: Negative for injury and deformity. 12:04 Cardiovascular: Positive for chest pain. 12:04 Back: Positive for flank pain, on the right. 12:04 All other systems are negative. Exam: 10:38 ECG was reviewed by the Attending Physician. ms3 12:04 Constitutional: This is a well developed, well nourished patient who is awake, alert, ms3 and in no acute distress. Head/Face: Normocephalic, atraumatic. Neck: Trachea midline, no cervical lymphadenopathy. Supple, full range of motion without nuchal rigidity, or vertebral point tenderness. No Meningismus. Chest/axilla: Normal chest wall appearance and motion. Nontender with no deformity. Cardiovascular: Regular rate and rhythm with a normal S1 and S2. No gallops, murmurs, or rubs. Normal PMI, no JVD. No pulse deficits. Respiratory: Lungs have equal breath sounds bilaterally, clear to auscultation and percussion. No rales, rhonchi or wheezes noted. No increased work of breathing, no retractions or nasal flaring. Abdomen/GI: Soft, non-tender, with normal bowel sounds. No distension or tympany. No guarding or rebound. No evidence of tenderness throughout. Skin: Warm, dry with normal turgor. Normal color with no rashes, no lesions, and no evidence of cellulitis. MS/ Extremity: Pulses equal, no cyanosis. Neurovascular intact. Full, normal range of motion. Psych: Awake, alert, with orientation to person, place and time. Behavior, mood, and affect are within normal limits. Vital Signs: 11:38 BP 146 / 107; Pulse 87; Resp 17; Temp 99; Pulse Ox 100% ; Weight 97.98 kg; Height 5 ft. jl7 11 in. (180.34 cm); Pain 2/10; 12:15 BP 124 / 88; Pulse 72; Resp 12 S; Pulse Ox 100% on R/A; Pain 3/10; jg9 11:38 Body Mass Index 30.13 (97.98 kg, 180.34 cm) jl7 MDM: 09:38 Patient medically screened. ms3 12:08 Differential diagnosis: abnormal EKG, acute myocardial infarction, coronary artery ms3 disease chest wall pain. HEART Score: History: Slightly Suspicious (0), ECG: Normal (0), Age: < or = 45 years (0), Risk Factors: 1 or 2 risk factors (1), Troponin: < or = 1 x Normal Limit (0), Total Score = 1. Data reviewed: vital signs, nurses notes, lab test result(s), EKG, radiologic studies, and as a result, I will discharge patient. Counseling: I had a detailed discussion with the patient and/or guardian regarding: the historical points, exam findings, and any diagnostic results supporting the discharge/admit diagnosis, lab results, radiology results, the need for outpatient follow up, to return to the emergency department if symptoms worsen or persist or if there are any questions or concerns that arise at home. ED course: . 12:16 ED course: Discussed chest x-ray, labs, EKG, physical exam findings with patient. ms3 Patient to follow-up with primary care physician in 2 to 3 days. Patient understands and agrees with plan. All questions were answered. Return precautions discussed include worsening symptoms, or any other concerns. On reevaluation patient is improved, alert and oriented x4, no apparent distress, nontoxic, ambulatory in emergency department.. 10/16 09:41 Order name: Basic Metabolic Panel; Complete Time: 11:58 ms3 10/16 09:41 Order name: CBC with Diff; Complete Time: 11:58 ms3 10/16 09:41 Order name: Troponin HS; Complete Time: 11:58 ms3 10/16 09:41 Order name: XRAY Chest (1 view); Complete Time: 11:58 ms3 10/16 09:41 Order name: EKG; Complete Time: 09:41 ms3 10/16 09:41 Order name: Cardiac monitoring; Complete Time: 10:44 ms3 10/16 09:41 Order name: EKG - Nurse/Tech; Complete Time: 10:43 ms3 10/16 09:41 Order name: IV Saline Lock; Complete Time: 11:27 ms3 10/16 09:41 Order name: Labs collected and sent; Complete Time: 11:27 ms3 10/16 09:41 Order name: O2 Per Protocol; Complete Time: 10:44 ms3 10/16 09:41 Order name: O2 Sat Monitoring; Complete Time: 10:44 ms3 EC:38 Rate is 69 beats/min. Rhythm is regular. QRS [place] is Normal. [place] interval is normal. ms3 Clinical impression: Normal ECG. Interpreted by me. Reviewed by me. Administered Medications: 11:37 Drug: Aspirin Chewable Tablet 324 mg Route: PO; jl7 12:27 Follow up: Response: No adverse reaction jg9 11:37 Drug: NS 0.9% 1000 ml Route: IV; Rate: 1 bolus; Site: right antecubital; jl7 12:27 Follow up: IV Status: Completed infusion; IV Intake: 800ml jg9 Disposition Summary: 10/16/21 12:04 Discharge Ordered Location: Home ms3 Condition: Stable ms3 Diagnosis - Chest pain, unspecified ms3 - Kidney stone ms3 Followup: ms3 - With: Rolando Tobin MD - When: 2 - 3 days - Reason: Re-evaluation by your physician Discharge Instructions: - Discharge Summary Sheet ms3 - Nonspecific Chest Pain, Adult ms3 Forms: - Medication Reconciliation Form ms3 - Thank You Letter ms3 - Antibiotic Education ms3 - Prescription Opioid Use ms3 Signatures: Dispatcher [employer] Pema Foy, RN RN jl7 Cristino Marvin DO DO ms3 Macarena Sutton RN jg9
[2021-10-16 13:07] VITALS: TEMP 99; O2SAT 100
[2021-10-16 13:09] VITALS: BP 124/88
--- NOTE | 2021-10-19 13:56 | EKG ---
Test Date: 2021-10-16 Test Time: 10:38:05 Washing Tub Operator: MB MEASUREMENT RESULTS: Intervals: Rate: 69 LA: 178 QRSD: 102 QT: 380 QTc: 407 [place]: P: 75 LA: 178 QRS: 83 T: 53 INTERPRETIVE STATEMENTS: Normal sinus rhythm Normal ECG Compared to ECG 09/08/2016 03:27:54 No significant changes Electronically Signed On 10-19-21 13:49:44 CDT by Cesar Smith
== END 2021-10-16 12:39 | disposition home or self-care (01) ==
LOC: ER 09:28
DX: R07.89 Other chest pain (principal); N20.0 Calculus of kidney; I10 Essential (primary) hypertension; E78.00 Pure hypercholesterolemia, unspecified; Z88.2 Allergy status to sulfonamides
CPT/HCPCS: 85025; 80048; 36415; 84484; 71045; J7030; 93005

== ENCOUNTER 2023-03-15 05:19 | Emergency (ER) | payer BC ==
--- OUTSIDE RECORDS SUMMARY | 2023-03-15 05:24 | XMS REPORT | Continuity of Care Document ---
:1990 Author Organization [facility] t Address [address] [place] [address] [address] [place] [address] Care Team Providers Name Role Phone Roque Sanchez Primary Care Physician Roque Loving Attending Clinician Unavailable Rolando Tobin Attending Clinician Unavailable Carlos Alberto ARIZMENDI, Sendil K.H. Attending Clinician CARLOS ALBERTO, SENDIL K.H. Attending Clinician Unavailable Doctor Unassigned, [place] Attending Clinician Unavailable Christ Richardson MD Attending Clinician CHRIST RICHARDSON Attending Clinician Unavailable CARLOS ALBERTO, SENDIL K.H. Admitting Clinician Unavailable Payers Payer Name Policy Type Policy Number Effective Date Expiration Date S ource Problems Condition Condition Condition Status Onset Resolution Last Treating Co mments Source Name Details Category Date Date Treatment Clinician Date No known No known Disease Unive rs active active ity of problems problems [facility] [id number] Epididymit Problem Com mon is Spirit - [facility] [id number] Right Problem Common nephrolith Spirit iasis [facility] [id number] Urethritis Problem Com mon [facility] [id number] Right Problem Common flank pain [facility] [id number] Lower Problem Common urinary Spirit tract - [facility] symptoms (LUTS) [facility] [id number] Nonspecifi Problem Com mon c Spirit urethritis - [facility] [id number] Mycoplasma Problem Co mmon infection, Spirit unspecifie - [facility] d site [facility] [id number] Left Problem Commo n [id number] testicular Spiri t pain - [facility] [id number] Right Problem Commo n [id number] testicular Spiri t pain - 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 Allergies, Adverse Reactions, Alerts Allergy Allergy Status Severity Reaction(s) Onset Inactive Treating Comm ents Source Name Type Date Date Clinician Sulfa Propensi Active Nausea 2021-04 Univers (Sulfona ty to and/or 1-21 ity of mide adverse Vomiting 00:00: [place] Antibiot reaction 00 Medica l ics) s Branch SULFA Drug Active N/V 2021-04 Univers (SULFONA Class 1-21 ity of MIDE 00:00: [place] ANTIBIOT 00 Medical ICS) Branch NO KNOWN Drug Active Univers ALLERGIE Class ity of S [facility] Social History Social Habit Start Date Stop Date Quantity Comments Source Gender identity Universit y [facility] of tobacco Cigarette Smoker University of use [facility] Exposure to 2022-05-04 2022-05-14 Not sure [facility] SARS-CoV-2 (event) 00:00:00 08:39:00 [facility] History of Social 2022-05-14 2022-05-14 Univers ity of function 00:00:00 00:00:00 [facility] Tobacco use and 2022-04-02 2022-04-02 Smokeless Universit y of exposure 00:00:00 00:00:00 tobacco non-user Formerly [facility] Sex Assigned At [birth year] Universit y of 00:00:00 00:00:00 [facility] Smoking Status Start Date Stop Date Source Tobacco smoking [facility] [place] [facility] xa consumption unknown Medical Bran ch Ex-smoker 2022-04-02 00:00:00 2022-04-02 [facility] 00:00:00 [facility] Medications Ordered Filled Start Stop Current Ordering Indication Dosage Frequency Signature Comments Components Source Medication Medication Date Date Medication? Clinician (SIG) Name Name METOPROLOL Yes [id number] 25mg TAKE 1 U nivers SUCCINATE 8-25 TABLET BY ity o f XL 25 mg 24 00:[place] 00 THE Medical MORNING Branch AND 1 TABLET IN THE EVENING METOPROLOL 2022-0 Yes [id number] 25mg TAKE 1 U nivers SUCCINATE 6-28 TABLET BY ity o f XL 25 mg 24 00:[place] 00 THE Medical MORNING Branch AND 1 TABLET IN THE EVENING METOPROLOL 2022-0 2022- No [id number] 25mg TAKE 1 Univers SUCCINATE 6-28 08-25 TABLET BY ity of XL 25 mg 24 00:00: 00:[place] :00 THE Medical MORNING Branch AND 1 TABLET IN THE EVENING metoprolol 2022-0 Yes [id number] 25mg Take 1 U nivers succinate 1-30 tablet by ity o f XL 25 mg 24 [place] the Medical morning Branch and 1 tablet in the evening. metoprolol 2022-0 Yes [id number] 25mg Take 1 U nivers succinate 1-30 tablet by ity o f XL 25 mg 24 [place]: [place] 00 the Medical morning Branch and 1 tablet in the evening. metoprolol 2022-0 Yes [id number] 25mg Take 1 U nivers succinate 1-30 tablet by ity o f XL 25 mg 24 [place]: [place] 00 the Medical morning Branch and 1 tablet in the evening. metoprolol 2022-0 Yes [id number] 25mg Take 1 U nivers succinate 1-30 tablet by ity o f XL 25 mg 24 [place]: [place] 00 the Medical morning Branch and 1 tablet in the evening. metoprolol 2022-0 Yes [id number] 25mg Take 1 U nivers succinate 1-30 tablet by ity o f XL 25 mg 24 [place]: [place] the Medical morning Branch and 1 tablet in the evening. metoprolol 2022-0 2022- No [id number] 25mg Take 1 Univers succinate 1-30 06-28 tablet by ity of XL 25 mg 24 00:00: 00:00 [place] :00 the Medical morning Branch and 1 tablet in the evening. atorvastati 2022-0 Yes 40mg Take 40 mg Univers n 40 mg 1-17 by mouth ity of tablet 00:00: in the [place] 00 morning. Medical Branch losartan 50 2022-0 Yes 50mg Take 50 mg Univers mg tablet 1-17 by mouth ity of 00:00: in the [place] 00 morning. Medical Branch atorvastati 2022-0 Yes 40mg Take 40 mg Univers n 40 mg 1-17 by mouth ity of tablet 00:00: in the [place] 00 morning. Medical Branch losartan 50 2022-0 Yes 50mg Take 50 mg Univers mg tablet 1-17 by mouth ity of 00:00: in the [place] 00 morning. Medical Branch atorvastati 2022-0 Yes 40mg Take 40 mg Univers n 40 mg 1-17 by mouth ity of tablet 00:00: in the [place] 00 morning. Medical Branch losartan 50 2022-0 Yes 50mg Take 50 mg Univers mg tablet 1-17 by mouth ity of 00:00: in the [place] 00 morning. Medical Branch atorvastati 2022-0 Yes 40mg Take 40 mg Univers n 40 mg 1-17 by mouth ity of tablet 00:00: in the [place] 00 morning. Medical Branch losartan 50 2022-0 Yes 50mg Take 50 mg Univers mg tablet 1-17 by mouth ity of 00:00: in the [place] 00 morning. Medical Branch atorvastati 2022-0 Yes 40mg Take 40 mg Univers n 40 mg 1-17 by mouth ity of tablet 00:00: in the [place] 00 morning. Medical Branch losartan 50 2022-0 Yes 50mg Take 50 mg Univers mg tablet 1-17 by mouth ity of 00:00: in the [place] 00 morning. Medical Branch No known 2021-04 No No known Unive rs medications 2-23 medication it y of 13:11: s [address] No known 2021-04 No No known Unive rs medications 2-23 medication it y of 13:11: [address] No known 2021-04 No No known Unive rs medications 1-21 medication it y of 09:55: s [place] [address] Medical Branch No known 2021-04 No No known Unive rs medications 1-21 medication it y of 09:55: [place] [address] Medical [place] Doxycycline Doxycycline 2021- 202- No 1{capsu BID Doxycyclin Hyclate 100 Hyclate 100 9-13 10-11 le} e Hyclate MG MG 00:00: 00:00 100 MG 00 :00 Doxycycline Doxycycline 2021-0 2- No 1{capsu BID Doxycyclin Hyclate 100 Hyclate 100 12-22 le} e Hyclate MG MG 00:00: 00:00 100 MG 00 :00 Alfuzosin Alfuzosin 2021-0 2023- No 1{table QD Alfuzosin HCl ER 10 HCl ER 10 10-29 t_immed HCl ER 10 MG MG 00:00: 00:00 iately_ MG 00 :00 after_t he_same _meal} Alfuzosin Alfuzosin 2021-3- No 1{table QD Alfuzosin HCl ER 10 HCl ER 10 10-29 t_immed HCl ER 10 MG MG 00:00: 00:00 iately_ MG 00 :00 after_t he_same _meal} Alfuzosin Alfuzosin 2021-3- No 1{table QD Alfuzosin HCl ER 10 HCl ER 10 10-29 t_immed HCl ER 10 MG MG 00:00: 00:00 iately_ MG 00 :00 after_t he_same _meal} Alfuzosin Alfuzosin 2021-3- No 1{table QD Alfuzosin HCl ER 10 HCl ER 10 10-29 t_immed HCl ER 10 MG MG 00:00: 00:00 iately_ MG 00 :00 after_t he_same _meal} Alfuzosin Alfuzosin 2021-0 3- No 1{table QD Alfuzosin HCl ER 10 HCl ER 10 10-29 t_immed HCl ER 10 MG MG 00:00: 00:00 iately_ MG 00 :00 after_t he_same _meal} Alfuzosin Alfuzosin 2021-0 3- No 1{table QD Alfuzosin HCl ER 10 HCl ER 10 10-29 t_immed HCl ER 10 MG MG 00:00: 00:00 iately_ MG 00 :00 after_t he_same _meal} Alfuzosin Alfuzosin 2021-0 3- No 1{table QD Alfuzosin HCl ER 10 HCl ER 10 7-21 01-16 t_immed HCl ER 10 MG MG 00:00: 00:00 iately_ MG 00 :00 after_t he_same _meal} Vital Signs Vital Name Observation Time Observation Value Comments Source Systolic blood 2022-05-14 16:27:00 122 mm[Hg] Univer sity of pressure [place] [facility] Diastolic blood 2022-05-14 16:27:00 82 mm[Hg] Unive rsity of pressure [place] [facility] Heart rate 2022-05-14 16:27:00 87 /min Universi ty of [place] [facility] Oxygen saturation in 2022-05-14 16:27:00 97 /min University of Arterial blood by [place] [employer] Pulse oximetry Branch Body temperature 2022-05-14 16:25:00 36.39 Pennie Univ ersity of [place] [facility] Respiratory rate 2022-05-14 16:25:00 18 /min Univ ersity of [place] [facility] Body height 2022-05-14 16:25:00 180.3 cm Universi ty [facility] [place] [facility] Body weight 2022-05-14 16:25:00 101.833 kg [facility]i ty [facility] [place] [facility] BMI 2022-05-14 16:25:00 31.31 kg/m2 [facility]i ty [facility] [place] [facility] Systolic blood 2022-04-02 17:52:00 156 mm[Hg] Univer sity of pressure [place] [facility] Diastolic blood 2022-04-02 17:52:00 94 mm[Hg] Unive rsity of pressure [place] [facility] Heart rate 2022-04-02 17:48:00 81 /min Universi ty [facility] [place] [facility] Body weight 2022-04-02 17:48:00 101.606 kg [facility]i ty [facility] [place] [facility] BMI 2022-04-02 17:48:00 31.24 kg/m2 [facility]i ty [facility] [place] [facility] Oxygen saturation in 2022-04-02 17:48:00 96 /min University of Arterial blood by [employer] Pulse oximetry Branch Systolic blood 2022-03-01 17:00:00 137 mm[Hg] Univer sity of pressure [place] [facility] Diastolic blood 2022-03-01 17:00:00 87 mm[Hg] Unive rsity of pressure [place] [facility] Heart rate 2022-03-01 17:00:00 88 /min [facility]i ty [facility] [place] [facility] Respiratory rate 2022-03-01 17:00:00 16 /min [facility] Oxygen saturation in 2022-03-01 17:00:00 96 /min [facility] Arterial blood by [facility] Pulse oximetry Branch Body temperature 2022-03-01 15:49:00 36.72 Pennie [facility] Body height 2022-03-01 15:49:00 180.3 cm Universi ty [facility] Body weight 2022-03-01 15:49:00 98.431 kg Universi ty [facility] BMI 2022-03-01 15:49:00 30.27 kg/m2 [facility] height 2022-01-14 09:15:00 71 [in_i] [facility] weight 2022-01-14 09:15:00 220 [lb_av] [facility] temperature 2022-01-14 09:15:00 98.6 [degF] [facility] bmi 2022-01-14 09:15:00 30.68 kg/m2 [facility] oximetry 2022-01-14 09:15:00 99 % [facility] respiratory rate 2022-01-14 09:15:00 18 /min Comm on [facility] blood pressure 2022-01-14 09:15:00 143 mm[Hg] Common [facility] - systolic [facility] blood pressure 2022-01-14 09:15:00 94 mm[Hg] Common [facility] - diastolic [facility] height 2021-10-29 13:30:00 71 [in_i] [facility] weight 2021-10-29 13:30:00 223.6 [lb_av] [facility] temperature 2021-10-29 13:30:00 98.6 [degF] [facility] bmi 2021-10-29 13:30:00 31.18 kg/m2 [facility] oximetry 2021-10-29 13:30:00 98 % Common S pirit - [facility] respiratory rate 2021-10-29 13:30:00 18 /min Comm on [facility] blood pressure 2021-10-29 13:30:00 137 mm[Hg] Common [facility] - systolic [facility] blood pressure 2021-10-29 13:30:00 85 mm[Hg] Common [facility] - diastolic [facility] Procedures Procedure Date / Time Performed Performing Clinician [facility] e ASSIGNMENT OF BENEFITS 2022-04-02 17:41:58 Doctor Unassigned, No [facility] Medical Branch EKG-12 LEAD 2022-03-01 17:35:21 Christ Richardson [facility] TROPONIN I 2022-03-01 16:12:00 Christ Richardson [facility] BASIC METABOLIC PANEL 2022-03-01 16:12:00 Christ Richardson [facility] (NA, K, CL, CO2, Medical Branch GLUCOSE, BUN, CREATININE, CA) CBC WITH DIFF 2022-03-01 16:12:00 Christ Richardson [facility] NOTICE OF PRIVACY 2022-03-01 15:43:54 Doctor Unassigned, No [facility] Name [facility] CONSENT/REFUSAL FOR 2022-03-01 15:43:14 Doctor Unassigned, No [facility] Medical [place] TREATMENT Encounters Start End Encounter Admission Attending Care Care Encounter Source Date/Time Date/Time Type Type Clinicians Facility Department ID 2023-03-09 Outpatient Fabienne, ST[facility]ELC [facility] [id number] Common 09:17:00 Roque [id number] [facility] 2021-10-29 Outpatient [place], STLMLC [facility] [id number] Common 13:00:02 Rolando [id number] [facility] 2022-12-03 2022-12-03 Yulissa Lu [facility] [id number] Univers 00:00:00 00:00:00 Delia DAVILA 350.1.13.10 trudi [id number] [place] dical NAL 9 [facility] 2022-10-06 2022-10-06 [facility] [id number] Univers 00:00:00 00:00:00 Sendlogan DAVILA 350.1.13.10 ity [place] [id number] [address] 2022-08-20 2022-08-20 Outpatient R CARLOS ALBERTO [facility] [id number] Univers 10:30:00 10:30:00 SENDIL ity [facility] 2022-05-14 2022-05-14 [facility] [id number] Univers 08:42:08 23:59:00 SENDIL ity [facility] 2022-05-14 2022-05-14 [facility] [id number] Univers 11:00:00 11:00:00 Visit Delia DAVILA 350.1.13.10 ity [place] [id number] [address] 2022-05-14 2022-05-14 Letter [facility] [id number] Univers 00:00:00 00:00:00 (Out) Delia DAVILA 350.1.13.10 [place] [id number] [address] 2022-05-12 2022-05-12 [facility]phone [facility] [id number] Univers 00:00:00 00:00:00 Delia DAVILA 350.1.13.10 [place] [id number] [address] 2022-05-10 2022-05-10 [facility] [id number] Univers 00:00:00 00:00:00 Sendil Vera DAVILA 350.1.13.10 [place] [id number] Ct dical NAL 059 [facility] 2022-05-07 2022-05-07 Outpatient R [facility] [id number] Univers 08:15:04 23:59:00 SENDIL ity [facility] 2022-04-02 2022-04-02 Outpatient R [facility] [id number] Univers 12:24:27 23:59:00 SENDIL ity [facility] 2022-04-02 2022-04-02 Office [facility] 1.2.840.114 [id number] Univers 11:30:00 12:44:25 Visit Sendlogan DAVILA 350.1.13.10 [place] [id number] Ct dical NAL 059 [facility] 2022-04-02 2022-04-02 Orders Doctor SHAWNA [id number] [id number] Univers 00:00:00 00:00:00 Only Unassigned, [place] 350.1.13.10 ity of [place] [facility] 4.2.7.2.686 [place] as [id number] [facility] [address] [place] 2022-03-24 2022-03-24 (TEL) [facility] [id number] Co mmon 00:00:00 00:00:00 Spirit - [facility] 2022-03-01 2022-03-01 Emergency [facility] [id number] Univers 09:51:00 11:49:00 Christ DAVILA 350.1.13.10 i [place] [id number] [facility] [address] [place] 2022-03-01 2022-03-01 Emergency [facility] [id number] Univers 09:51:00 11:49:00 CHRIST ity [facility] 2022-01-14 2022-01-14 OFFICE STLMLC STLMLC [id number] Co mmon 00:00:00 00:00:00 VISIT EST Spir it PT LEVEL 3 [facility] 2021-12-22 2021-12-22 (TEL) STLMLC STLMLC [id number] Co mmon 00:00:00 00:00:00 [facility] 2021-12-01 2021-12-01 (TEL) STLMLC STLMLC [id number] Co mmon 00:00:00 00:00:00 [facility] 2021-11-26 2021-11-26 (TEL) STLMLC STLMLC [id number] Co mmon 00:00:00 00:00:00 [facility] 2021-10-29 2021-10-29 OFFICE STLMLC STLMLC [id number] Co mmon 00:00:00 00:00:00 VISIT NEW Spir it PT LEVEL 4 - [facility] Results Test Description Test Time Test Comments Results Result Comments Source TROPONIN I 2022-03-01 16:59:58 Test Item Value Reference Range Interpretation Comme nts TROPONIN I (test code = 0.006 ng/mL See_Comment [Au tomated message] The 2666061768) system which ge nerated this result tra nsmitted reference range : <=0.034. The reference r arnulfo was not used to int erpret this result as normal/abnormal . ESTER (test code = ESTER) Reference (Normal) Range (defined by the 99th percentile reference limit): <= 0.034 ng/mL Note: Cardiac troponin begins to rise 3-4 hours after the onset of ischemia. Repeat in 4-6 hours if the sample was drawn within 3-4 hours of the onset of the symptom and found normal. Diagnosis of myocardial injury is made with acute changes in cTn concentrations with at least one serial sample above the 99th percentile upper reference limit (URL), taken together with the patient's clinical presentation. Biotin has been reported to cause a negative bias, interpret results relative to patient's use of biotin. Lab Interpretation Normal (test code = 83048-7) [facility] METABOLIC PANEL (NA, K, CL, CO2, GLUCOSE, BUN, CREATININE, CA)2022-03-01 16:49:00 Test Item Value Reference Range Interpretation Comments NA (test code = 135 mmol/L 135-145 1359774684) K (test code = 4.1 mmol/L 3.5-5.0 4378548496) CL (test code = 99 mmol/L 98-108 0477450322) CO2 TOTAL (test code 25 mmol/L 23-31 = 7478539099) AGAP (test code = 2-16 4323502349) BUN (test code = 18 mg/dL 7-23 7666205553) GLUCOSE (test code = 98 mg/dL 70-110 6066458729) CREATININE (test code 0.96 mg/dL 0.60-1.25 = 0749704345) CALCIUM (test code = 9.1 mg/dL 8.6-10.6 1772716470) eGFR (test code = mL/min/1.73m2 1294614965) ESTER (test code = ESTER) Association of Glomerular Filtration Rate (GFR) and Staging of Kidney Disease* + + +- +| GFR (mL/min/1.73 m2) ?| With Kidney Damage ?| ?Without Kidney Damage+ ------+ ----+ ------+| ?>90 ?| ?Stage one ?| ? Normal ?+ -+ + -+| ?60-89 ?| ?Stage two ?| ? Decreased GFR ? + + +- +| ?30-59 ?| ?Stage three ?| ? Stage three ? + + +- +| ?15-29 ?| ?Stage four ? | ? Stage four ?+ -+ + -+| ?<15 (or dialysis) ? ?| ?Stage five ? | ? Stage five ?+ -+ + -+ *Each stage assumes the associated GFR level has been in effect for at least three months. ?Stages 1 to 5, with or without kidney disease, indicate chronic kidney disease. Notes: Determination of stages one and two (with eGFR >59mL/min/1.73 m2) requires estimation of kidney damage for at least three months as defined by structural or functional abnormalities of the kidney, manifested by either:Pathological abnormalities or Markers of kidney damage (including abnormalities in the composition of the blood or urine or abnormalities in imaging tests). [facility] WITH [id number] 16:42:40 Test Item Value Reference Range Interpretation Comments WBC (test code = See_Comment [Automated 6690-2) message] The sy stem which generated this result transmitted reference range : 4.20 - 10.70 10*3/?L. The reference range was not used to interpret this result as normal/abnormal . RBC (test code = See_Comment [Automated 789-8) message] The sy stem which generated this result transmitted reference range : 4.26 - 5.52 10*6/?L. The reference range was not used to interpret this result as normal/abnormal . HGB (test code = 15.8 g/dL 12.2-16.4 718-7) HCT (test code = 42.8 % 38.4-49.3 4544-3) MCV (test code = 85.3 fL 81.7-95.6 787-2) MCH (test code = 31.5 pg 26.1-32.7 785-6) MCHC (test code = 36.9 g/dL 31.2-35.0 H 786-4) RDW-SD (test code = 35.3 fL 38.5-51.6 L 43545-4) RDW-CV (test code = 11.4 % 12.1-15.4 L 788-0) PLT (test code = See_Comment [Automated 777-3) message] The sy stem which generated this result transmitted reference range : 150 - 328 10*3/ ?L. The reference r arnulfo was not used to interpret this result as normal/abnormal . MPV (test code = 9.2 fL 9.8-13.0 L 06094-2) NRBC/100 WBC (test See_Comment [Automat ed code = 1572405817) message] The system which generated this result transmitted reference range : 0.0 - 10.0 /100 WBCs. The refer ence range was not u sed to interpret th is result as normal/abnormal . NRBC x10^3 (test code See_Comment [Auto mated = 5873009530) message] The s ystem which generated this result transmitted reference range : 10*3/?L. The reference range was not used to interpret this result as normal/abnormal . GRAN MAT (NEUT) % 86.6 % (test code = 770-8) IMM GRAN % (test code 0.40 % = 2104005029) LYMPH % (test code = 6.1 % 736-9) MONO % (test code = 5.4 % 5905-5) EOS % (test code = 1.2 % 713-8) BASO % (test code = 0.3 % 706-2) GRAN MAT x10^3(ANC) 9.03 10*3/uL 1.99-6.95 H (test code = 2969441261) IMM GRAN x10^3 (test 0.04 10*3/uL 0.00-0.06 code = 2980168961) LYMPH x10^3 (test code 0.64 10*3/uL 1.09-3.23 L = 731-0) MONO x10^3 (test code 0.56 10*3/uL 0.36-1.02 = 742-7) EOS x10^3 (test code = 0.13 10*3/uL 0.06-0.53 711-2) BASO x10^3 (test code 0.03 10*3/uL 0.01-0.09 = 704-7) Lab Interpretation Abnormal (test code = 95861-6) [facility] Notes Date/Time Note Provider Source 2022-12-03 13:26:41 [id number]:26:41Formatting Selina fan [place] [facility] of this note is different from the original.Images from the original note were not included.Refill approved per cardiology protocol:Cardiovascular: ?Beta Blockers Passed 12/03/2022 12:47 PM Protocol Details Valid encounter within last 12 months Heart rate within normal limits and completed in the last 12 months 71981-4Lftekqwos encounter [id number]:26:41Tele phone encounter [id number] 4.2.7.2.239501|[id number] ailable for patient [id number] john Keenan [address] PokdStrjilaedHxzvfcgntGNXC051 [id number] 8101-08-20V20:26:411.2.840.11 4350.1.72.3.15|1.2.840.505869 .[id number] 0494"
[2023-03-15 06:07] LABS: Absolute Lymphocytes (CBC) 2.1 K/uL (0.7-4.9); Hematocrit 44.5 % (39.6-49.0); Lymphocytes % 34.1 % (15.3-44.8); MCV 88.6 fL (80-100); MPV 7.2 fL (7.6-11.3); Platelets 230 thou/uL (152-406); RBC Red Blood Cell Count 5.02 M/uL (4.33-5.43)
[2023-03-15 06:23] LABS: Albumin 4.1 g/dL (3.4-5.0); Bilirubin Total 0.5 mg/dL (0.2-1.0); Potassium 3.9 mEq/L (3.5-5.1); Protein, Total 7.9 g/dL (6.4-8.2)
[2023-03-15] MEDS ORDERED: MORPHINE 4 MG/ML SYR ONE (06:29)
[2023-03-15] MEDS ORDERED: NA CHLORIDE 0.9% 1,000 ML ONE (06:29)
[2023-03-15] MEDS ORDERED: KETOROLAC 30 MG/ML INJ ONE (06:29)
[2023-03-15] MEDS ORDERED: ONDANSETRON 4 MG/2 ML VIAL ONE (06:29)
[2023-03-15 07:26] LABS: Blood Morphology Comment NOT SEEN (NOT SEEN); Platelet Estimate ADEQ; White Blood Cell Scan OK (OK)
--- NOTE | 2023-03-15 07:39 | RAD REPORT ---
EXAM DESCRIPTION: CT - Abdomen Pelvis W/Wo Contrast - 03/15/2023 7:10 am CLINICAL HISTORY: CT Urogram Left testicular pain, swelling COMPARISON: Abdomen Pelvis W/Wo Contrast dated 11/27/2021; CT ABD PELVIS W CONTRAST dated 08/30/2011 TECHNIQUE: Thin cut axial CT imaging of the abdomen and pelvis was performed before and after intrav enous administration of 100 mL Isovue 300. Multiplanar reformats were generated and reviewed. All CT scans are performed using dose optimization technique as appropriate and may include automated exposure control or mA/KV adjustment according to patient size. FINDINGS: No suspicious findings in the lung bases. The liver, spleen, adrenal glands, and pancreas show no suspicious findings. Gallbladder and biliary tree are also without suspicious finding. Symmetric renal function is seen with no hydronephrosis or suspicious renal mass. Left kidney is agai n anteriorly rotated. Stable mid calculus at the right renal hilum. The opacified aspects of the urin dustin tracts are unremarkable. No dilated bowel loops or bowel wall thickening. Appendix is unremarkable. No free air, free fluid or inflammatory stranding. No hernia, mass or bulky lymphadenopathy. The urinary bladder is without sig nificant finding or suspicious masses. Prostatic calcifications. No significant soft tissue abnormalities along the perineum or scrotum. No suspicious bony findings. IMPRESSION: Stable right renal hilum 9 millimeter calculus. No evidence of obstruction. No other acu te intra-abdominal process.
[2023-03-15 08:26] LABS: Specific Gravity > 1.030 (1.005-1.030); Urine Bilirubin NEGATIVE (Negative); Urine Blood Negative (Negative); Urine Clarity Clear (Clear); Urine Color Colorless (Yellow); Urine Glucose NEGATIVE (Negative); Urine Protein NEGATIVE (Negative); Urine Urobilinogen Normal (Normal); Urine pH 5.5 (5.0-7.0)
--- NOTE | 2023-03-15 08:26 | RAD REPORT ---
EXAM DESCRIPTION: US - Scrotum Testicles - 03/15/2023 8:06 am CLINICAL HISTORY: testicular pain left COMPARISON: Scrotum Testicles dated 11/27/2021 TECHNIQUE: Sonographic grayscale and color flow images of the scrotum were obtained. FINDINGS: The right testicle measures 4.8 x 1.8 x 3.0 cm. No intratesticular masses or evidence of t esticular torsion. The left testicle measures 4.3 x 1.9 x 3.4 cm. No intratesticular masses or evidence of testicular to rsion. Both epididymides are normal in size. Mildly increased flow on color duplex imaging to the left epidi dymal head. No pathologic fluid collections. IMPRESSION: Mildly increased flow to the left epididymal head, may represent mild epididymitis. No testicular parenchymal abnormality.
[2023-03-15] MEDS ORDERED: METOPROLOL TAR 25 MG TAB ONE (08:36)
--- NOTE | 2023-03-15 08:39 | EDPHYS ---
Physician Documentation [facility] Name: Richard Calderon Age: 32 yrs Sex: Male : 1990 Arrival Date: 03/15/2023 Time: 05:19 Bed 13 Private MD: ED Physician Brijesh Costello HPI: 03/15 05:34 This 32 yrs old Male presents to ER via Unassigned with complaints of sp4 Testicular Pain, Testicular Swelling. 07:06 Presents with left testicular pain and swelling acutely this morning. Patient has been sp4 having problems with testicular pain for the past 2 years. Patient has seen urologist twice. Patient on presentation states urologist wants CT urogram. Patient also requested pain control for testicular pain. . Historical: - Allergies: 05:42 Sulfa (Sulfonamide Antibiotics); bp - Home Meds: 05:42 atorvastatin 20 mg oral tablet 1 tab daily [Active]; metoprolol tartrate 50 mg oral bp tablet 1 tab daily [Active]; - PMHx: 05:42 High Cholesterol; Hypertension; seasonal allergies; bp - PSHx: 05:42 right knee; bp - Immunization history:: Adult Immunizations up to date. - Social history:: Smoking status: Patient denies any tobacco usage or history of. - Family history:: not pertinent. ROS: 07:06 Constitutional: Negative for fever, chills, and weight loss, : As above left sp4 testicular pain and swelling. 07:06 All other systems are negative, Exam: 07:06 Constitutional: This is a well developed, well nourished patient who is awake, alert, sp4 and in no acute distress. Head/Face: Normocephalic, atraumatic. Eyes: Pupils equal round and reactive to light, extra-ocular motions intact. Lids and lashes normal. Conjunctiva and sclera are not injected. Cornea within normal limits. Periorbital areas with no swelling, redness, or edema. ENT: Nares patent. No nasal discharge, no septal abnormalities noted. Tympanic membranes are normal and external auditory canals are clear. Oropharynx with no redness, swelling, or masses, exudates, or evidence of obstruction, uvula midline. Mucous membranes moist. Neck: Trachea midline, no thyromegaly or masses palpated, and no cervical lymphadenopathy. Supple, full range of motion without nuchal rigidity, or vertebral point tenderness. Chest/axilla: Normal chest wall appearance and motion. Nontender with no deformity. No lesions are appreciated. Cardiovascular: Regular rate and rhythm with a normal S1 and S2. No gallops, murmurs, or rubs. Normal PMI, no JVD. No pulse deficits. Respiratory: Lungs have equal breath sounds bilaterally, clear to auscultation and percussion. No rales, rhonchi or wheezes noted. No increased work of breathing, no retractions or nasal flaring. Abdomen/GI: Soft, non-tender, with normal bowel sounds. No distension or tympany. No guarding or rebound. No evidence of tenderness throughout. Back: No spinal tenderness. No costovertebral tenderness. Male : Normal genitalia with no discharge or lesions. Left testicular mild swelling and tenderness without redness or mass Skin: Warm, dry with normal turgor. Normal color with no rashes, no lesions, and no evidence of cellulitis. MS/ Extremity: Pulses equal, no cyanosis. Neurovascular intact. Full, normal range of motion. Neuro: Awake and alert, GCS 15, oriented to person, place, time, and situation. Cranial nerves II-XII grossly intact. Motor strength 5/5 in all extremities. Sensory grossly intact. Psych: Awake, alert, with orientation to person, place and time. Behavior, mood, and affect are within normal limits Vital Signs: 06:08 BP 177 / 112; Pulse 80; Resp 18 S; Pulse Ox 97% on R/A; jw7 06:56 BP 167 / 112; Pulse 82; Resp 16 S; Pulse Ox 95% on R/A; jw7 08:15 BP 154 / 113; Pulse 74; Resp 16 S; Temp 98(TE); Pulse Ox 98% on R/A; aa5 08:15 MD notified BP remains elevated and that pt reported he didn't take his metoprolol last aa5 night or this morning. MDM: 05:51 Patient medically screened. sp4 07:06 Differential diagnosis: nonspecific abdominal pain, appendicitis, UTI, urinary sp4 retention, prostatitis, urethritis. Data reviewed: vital signs, nurses notes, old medical records, lab test result(s), radiologic studies, CT scan, ultrasound. Consideration of Admission/Observation Escalation of care including admission/observation considered. Transition of care: After a detail discussion of the patient's case, care is transferred to Brijesh Costello MD. 09:15 ED course: Assumed care at shift change, pain is improving in the emergency department. rt Patient with mild epididymitis on ultrasound, CT scan benign, is currently on antibiotics, follow-up with urology. 03/15 05:50 Order name: CBC with Diff; Complete Time: 07:30 sp4 03/15 05:50 Order name: CMP; Complete Time: 07:03 sp4 03/15 05:50 Order name: Urinalysis w/ reflexes; Complete Time: 08:28 sp4 03/15 06:32 Order name: CBC Smear Scan; Complete Time: 07:30 EDMS 03/15 05:51 Order name: US Scrotum Testicles; Complete Time: 08:28 sp4 03/15 07:12 Order name: Abdomen ; Complete Time: 08:28 EDMS 03/15 05:50 Order name: IV Saline Lock; Complete Time: 06:31 sp4 03/15 05:50 Order name: Labs collected and sent; Complete Time: 06:31 sp4 Administered Medications: 06:30 Drug: Ketorolac IVP 30 mg IVP once Route: IVP; Site: right antecubital; jw7 07:00 Follow up: Response: No adverse reaction aa5 06:30 Drug: morphine IVP or IV 4 mg IVP once over 4 mins Route: IVP; Infused Over: 4 mins; jw7 Site: right antecubital; 07:00 Follow up: Response: No adverse reaction aa5 06:30 Drug: Ondansetron IVP 4 mg IVP once; over 2 minutes Route: IVP; Site: right antecubital;jw7 07:00 Follow up: Response: No adverse reaction aa5 06:30 Drug: NS 0.9% IV 1000 ml IV at 1 bolus Per protocol; 1000 mL bolus Route: IV; Rate: 1 jw7 bolus; Site: right antecubital; 09:15 Follow up: IV Status: Completed infusion; IV Intake: 1000ml aa5 08:23 Drug: Metoprolol PO 25 mg PO once Route: PO; aa5 09:15 Follow up: Response: No adverse reaction aa5 Disposition Summary: 03/15/23 08:38 Discharge Ordered Notes: Location: Home rt Problem: an ongoing problem rt Symptoms: have improved rt Condition: Stable rt Diagnosis - Left testicular pain rt Followup: rt - With: Kaleb Coronel MD - When: 2 - 3 days - Reason: Discharge Instructions: - Discharge Summary Sheet rt - Epididymitis rt - Testicular Self-Exam rt Forms: - Work release form rt - Medication Reconciliation Form rt - Thank You Letter rt - Antibiotic Education rt - Prescription Opioid Use rt - Patient Portal Instructions rt - Leadership Thank You Letter rt Signatures: Dispatcher [employer] Sarah Pack, RN RN aa5 Umesh Vanessa, RN RN bp Dori Gan, RN RN jw7 Brijesh Costello MD MD rt Derrek Capps MD MD sp4 Corrections: (The following items were deleted from the chart) 07:12 05:51 Abdomen Pelvis W Con+CT.RAD.BRZ ordered. EDCA EDMS
--- NOTE | 2023-03-15 08:39 | ER ---
Nurse's Notes [facility] Name: Richard Calderon Age: 32 yrs Sex: Male : 1990 Arrival Date: 03/15/2023 Time: 05:19 Bed 13 Private MD: Diagnosis: Left testicular pain Presentation: 03/15 05:39 Chief complaint: Patient states: LEFT TESTE PAIN/SWELLING. INTERMITTENT/RECURRENT SINCE bp 2017. SEEN BY URO AND PCP. IMAGING ORDERED. Coronavirus screen: At this time, the client does not indicate any symptoms associated with coronavirus-19. Ebola Screen: No symptoms or risks identified at this time. Initial Sepsis Screen: Does the patient meet any 2 criteria? No. Patient's initial sepsis screen is negative. Does the patient have a suspected source of infection? No. Patient's initial sepsis screen is negative. Risk Assessment: Do you want to hurt yourself or someone else? Patient reports no desire to harm self or others. Onset of symptoms is unknown. 05:39 Method Of Arrival: Ambulatory bp 05:39 Acuity: WILBER 3 bp Triage Assessment: 06:00 General: Appears in no apparent distress. uncomfortable, Behavior is calm, cooperative. jw7 Pain: Complains of pain in left testicle and right testicle Pain does not radiate. Pain currently is 5 out of 10 on a pain scale. Quality of pain is described as stabbing, Pain began suddenly, Is continuous, Alleviated by rest, Aggravated by increased activity. EENT: No deficits noted. No signs and/or symptoms were reported regarding the EENT system. Neuro: Lanier Agitation-Sedation Scale (RASS): 0 - Alert and Calm Level of Consciousness is awake, alert, obeys commands, Oriented to person, place, time, situation. Cardiovascular: Capillary refill < 3 seconds Clubbing of nail beds is absent JVD is absent Patient's skin is warm and dry. Respiratory: Airway is patent Trachea midline Respiratory effort is even, unlabored, Respiratory pattern is regular, symmetrical. GI: Abdomen is flat, non-distended. : No deficits noted. No signs and/or symptoms were reported regarding the genitourinary system. Derm: No deficits noted. No signs and/or symptoms reported regarding the dermatologic system. Musculoskeletal: No deficits noted. No signs and/or symptoms reported regarding the musculoskeletal system. Historical: - Allergies: 05:42 Sulfa (Sulfonamide Antibiotics); bp - Home Meds: 05:42 atorvastatin 20 mg oral tablet 1 tab daily [Active]; metoprolol tartrate 50 mg oral bp tablet 1 tab daily [Active]; - PMHx: 05:42 High Cholesterol; Hypertension; seasonal allergies; bp - PSHx: 05:42 right knee; bp - Immunization history:: Adult Immunizations up to date. - Social history:: Smoking status: Patient denies any tobacco usage or history of. - Family history:: not pertinent. Screenin:45 [facility] ED Fall Risk Assessment (Adult) History of falling in the last 3 months, jw7 including since admission No falls in past 3 months (0 pts) Score/Fall Risk Level 0 - 2 = Low Risk Oriented to surroundings, Maintained a safe environment. Abuse screen: Denies threats or abuse. Denies injuries from another. Nutritional screening: No deficits noted. Tuberculosis screening: No symptoms or risk factors identified. Assessment: 06:00 General: see triage assessment. jw7 06:56 Reassessment: Patient appears in no apparent distress at this time. No changes from jw7 previously documented assessment. Patient and/or family updated on plan of care and expected duration. Pain level reassessed. Patient is alert, oriented x 3, equal unlabored respirations, skin warm/dry/pink. 08:11 Reassessment: Patient is alert, oriented x 3, equal unlabored respirations, skin aa5 warm/dry/pink. Pt back from . 08:11 General: Appears comfortable. aa5 09:15 Reassessment: Patient is alert, oriented x 3, equal unlabored respirations, skin aa5 warm/dry/pink. Vital Signs: 06:08 BP 177 / 112; Pulse 80; Resp 18 S; Pulse Ox 97% on R/A; jw7 06:56 BP 167 / 112; Pulse 82; Resp 16 S; Pulse Ox 95% on R/A; jw7 08:15 BP 154 / 113; Pulse 74; Resp 16 S; Temp 98(TE); Pulse Ox 98% on R/A; aa5 08:15 MD notified BP remains elevated and that pt reported he didn't take his metoprolol last aa5 night or this morning. ED Course: 05:25 Patient arrived in ED. gm2 05:34 Derrek Capps MD is Attending Physician. sp4 05:41 Triage completed. bp 05:42 Arm band placed on. bp 05:44 Dori Gan, RN is Primary Nurse. jw7 05:45 Patient has correct armband on for positive identification. Bed in low position. Call critical access hospital light in reach. 06:00 Initial lab(s) drawn, by ED staff, sent to lab. Inserted saline lock: 20 gauge in right critical access hospital antecubital area, using aseptic technique. Blood collected. 07:12 Abdomen In Process Unspecified. EDMS 07:23 Attending Physician role handed off by Derrek Capps MD rt 07:23 Brijesh Costello MD is Attending Physician. rt 08:07 US Scrotum Testicles In Process Unspecified. EDMS 08:38 Kaleb Coronel MD is Referral Physician. rt 09:15 No provider procedures requiring assistance completed. IV discontinued, intact, aa5 bleeding controlled, No redness/swelling at site. Pressure dressing applied. Administered Medications: 06:30 Drug: Ketorolac IVP 30 mg IVP once Route: IVP; Site: right antecubital; jw7 07:00 Follow up: Response: No adverse reaction aa5 06:30 Drug: morphine IVP or IV 4 mg IVP once over 4 mins Route: IVP; Infused Over: 4 mins; jw7 Site: right antecubital; 07:00 Follow up: Response: No adverse reaction aa5 06:30 Drug: Ondansetron IVP 4 mg IVP once; over 2 minutes Route: IVP; Site: right antecubital;jw7 07:00 Follow up: Response: No adverse reaction aa5 06:30 Drug: NS 0.9% IV 1000 ml IV at 1 bolus Per protocol; 1000 mL bolus Route: IV; Rate: 1 jw7 bolus; Site: right antecubital; 09:15 Follow up: IV Status: Completed infusion; IV Intake: 1000ml aa5 08:23 Drug: Metoprolol PO 25 mg PO once Route: PO; aa5 09:15 Follow up: Response: No adverse reaction aa5 Medication: 09:20 VIS not applicable for this client. aa5 Intake: 09:15 IV: 1000ml; Total: 1000ml. aa5 Outcome: 08:38 Discharge ordered by . rt 09:20 Discharged to home ambulatory, aa5 09:20 Condition: stable 09:20 Discharge instructions given to patient, Instructed on discharge instructions, follow up and referral plans. Demonstrated understanding of instructions, follow-up care, :29 Patient left the ED. nj1 Signatures: Dispatcher [employer] Sarah Pack, RN RN aa5 Umesh Vanessa, RN RN bp Dori Gan RN RN jw7 Brijesh Costello MD MD rt Derrek Capps MD MD sp4 Christine Lock RN RN nj1 Brandi Brar 2 Corrections: (The following items were deleted from the chart) 07:12 07:08 In radiology for Abdomen Pelvis W Con+CT.RAD.BRZ. EDOH EDMS
[2023-03-15 09:56] VITALS: BP 154/113; TEMP 98; O2SAT 98
== END 2023-03-15 09:29 | disposition home or self-care (01) ==
LOC: ER 05:19
DX: N50.812 Left testicular pain (principal); I10 Essential (primary) hypertension; Z88.2 Allergy status to sulfonamides
CPT/HCPCS: 96361; 85025; 36415; 81003; 80053; 74178; 76870; 96375; 96374; 99284; J2405; J7030

== ENCOUNTER 2023-12-04 12:36 | Emergency (ER) | payer BC ==
--- OUTSIDE RECORDS SUMMARY | 2023-12-04 12:38 | XMS REPORT | Continuity of Care Document ---
Author Name Unknown Address [address] [facility] [address]. [address] [place] [address] [facility] thconnect Address [address] [facility]. [address] [place] [address] Care Team Providers Care Copier Operator Name Role Phone Roque Sanchez Primary Care Physician [phone] Roque Loving Attending Clinician Unavailable Rolando Tobin Attending Clinician Unavailable Carlos Alberto ARIZMENDI, Sendil K.H. Attending Clinician + [phone] CARLOS ALBERTO, SENDIL K.H. Attending Clinician Unavaila chele Doctor Unassigned, [place] Attending Clinician U Christ Najera MD Attending Clinician [phone] CHRIST RICHARDSON Attending Clinician Unavailable CARLOS ALBERTO, SENDLUIS MIGUEL K.H. Admitting Clinician Macey elaine Payers Payer Name Policy Type Policy Number Effective Date Expirati on Date Source Problems Condition Name Condition Details Condition Category Status Onset Date Resolution Date Last Treatment Date Treating Clinician Comments Source [id number] Epididymal pain Problem Common [facility] [id number] Epididymit is Problem Common [facility] [id number] Kidney stone Problem Common [facility] [id number] Urethritis Problem Comm on [facility] [id number] Right flank pain Problem Common [facility] [id number] Lower urinary tract symptoms (LUTS) Problem Common [facility] [id number] Nonspecifi c urethritis Problem [facility] [id number] Mycoplasma infection, unspecifie d site Problem [facility] [id number] Left testicular pain Problem [facility] [id number] Right testicular pain Problem [facility] [id number] 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 [facility] [id number] Scrotal pain Problem [facility] [id number] LLQ pain Problem Commo n [facility] No known active problems No known active problems Disease [facility] Allergies, Adverse Reactions, Alerts Allergy Name Allergy Type Status Severity Reaction(s) Onset Date Inactive Date Treating Clinician Comments Source Sulfa (Sulfona mide Antibiot ics) Propensi ty to adverse reaction s Active Nausea and/or Vomiting 2021-04 00:00: 00 [facility] SULFA (SULFONA MIDE ANTIBIOT ICS) Drug Class Active N/V 2021-04 00:00: 00 [facility] NO KNOWN ALLERGIE S Drug Class Active [facility] Social History Social Habit Start Date Stop Date Quantity Comments Source Gender identity [facility] Sexual orientation U [facility] History of tobacco use Cigarette Smoker [facility] Exposure to SARS-CoV-2 (event) 2022-05-04 00:00:00 2022-05-14 08:39:00 Not sure [facility] History of Social function 2022-05-14 00:00:00 2022-05-14 00:00:00 [facility] Tobacco use and exposure 2022-04-02 00:00:00 2022-04-02 00:00:00 Smokeless tobacco non-user [facility] Sex Ass[birth year] At 1990 00:00:00 1990 00:00:00 [facility] Smoking Status Start Date Stop Date Source Tobacco smoking consumption unknown [facility] Never Smoker [facility] Former Smoker 2023-03-09 00:00:00 2023-03-09 00:00:00 [facility] Medications Ordered Medication Name Filled Medication Name Start Date Stop Date Current Medication? Ordering Clinician Indication Dosage Frequency Signature (SIG) Comments Components Source Azithromyci n 500 MG Azithromyci n 500 MG -06 00:00: 00 No 1{table t} QD Azithromyc in 500 MG Uroxatral 10 MG Uroxatral 10 MG 4-10 00:00: 00 No 1{table t_at_be dtime} QD Uroxatral 10 MG METOPROLOL SUCCINATE XL 25 mg 24 hr tablet - 00:00: 00 Yes [id number] 25mg TAKE 1 TABLET BY MOUTH IN THE MORNING AND 1 TABLET IN THE EVENING [facility] METOPROLOL SUCCINATE XL 25 mg 24 hr tablet 8-25 00:00: 00 Yes [id number] 25mg TAKE 1 TABLET BY MOUTH IN THE MORNING AND 1 TABLET IN THE EVENING [facility] METOPROLOL SUCCINATE XL 25 mg 24 hr tablet 10-06 00:00: 00 Yes [id number] 25mg TAKE 1 TABLET BY MOUTH IN THE MORNING AND 1 TABLET IN THE EVENING [facility] metoprolol succinate XL 25 mg 24 hr tablet -30 00:00: 00 10-06 00:00 :00 No [id number] 25mg Take 1 tablet by mouth in the morning and 1 tablet in the evening. [facility] atorvastati n 40 mg tablet 04-27 00:00: 00 Yes 40mg Take 40 mg by mouth in the morning. [facility] losartan 50 mg tablet 04-27 00:00: 00 Yes 50mg Take 50 mg by mouth in the morning. [facility] No known medications 2021-04 13:11: 44 No No known medication s [facility] No known medications 2021-04 09:55: 17 No No known medication s [facility] Doxycycline Hyclate 100 MG Doxycycline Hyclate 100 MG -13 00:00: 00 01-19 00:00 :00 No 1{capsu le} BID Doxycyclin e Hyclate 100 MG Doxycycline Hyclate 100 MG Doxycycline Hyclate 100 MG 2021-0 9-13 00:00: 00 01-19 00:00 :00 No 1{capsu le} BID Doxycyclin e Hyclate 100 MG Alfuzosin HCl ER 10 MG Alfuzosin HCl ER 10 MG 2021-10-29 00:00: 00 04-26 00:00 :00 No 1{table t_immed iately_ after_t he_same _meal} QD Alfuzosin HCl ER 10 MG Alfuzosin HCl ER 10 MG Alfuzosin HCl ER 10 MG 10-29 00:00: 00 04-26 00:00 :00 No 1{table t_immed iately_ after_t he_same _meal} QD Alfuzosin HCl ER 10 MG Alfuzosin HCl ER 10 MG Alfuzosin HCl ER 10 MG 10-29 00:00: 00 04-26 00:00 :00 No 1{table t_immed iately_ after_t he_same _meal} QD Alfuzosin HCl ER 10 MG Valtrex 1 GM Valtrex 1 GM No 1{table t} QD Valtrex 1 GM Atorvastati n Calcium Atorvastati n Calcium No Atorvastat in Calcium Losartan Potassium 50 MG Losartan Potassium 50 MG No 1{table t} QD Losartan Potassium 50 MG Gabapentin 300 MG Gabapentin 300 MG No 1{capsu le} QD Gabapentin 300 MG amLODIPine Besylate 5 MG amLODIPine Besylate 5 MG No 1{table t} QD amLODIPine Besylate 5 MG Valtrex 1 GM Valtrex 1 GM No 1{table t} QD Valtrex 1 GM Losartan Potassium 50 MG Losartan Potassium 50 MG No 1{table t} QD Losartan Potassium 50 MG Atorvastati n Calcium Atorvastati n Calcium No Atorvastat in Calcium Gabapentin 300 MG Gabapentin 300 MG No 1{capsu le} QD Gabapentin 300 MG amLODIPine Besylate 5 MG amLODIPine Besylate 5 MG No 1{table t} QD amLODIPine Besylate 5 MG Valtrex 1 GM Valtrex 1 GM No 1{table t} QD Valtrex 1 GM Metoprolol Tartrate Metoprolol Tartrate No Metoprolol Tartrate Losartan Potassium 50 MG Losartan Potassium 50 MG No 1{table t} QD Losartan Potassium 50 MG Gabapentin 300 MG Gabapentin 300 MG No 1{capsu le} QD Gabapentin 300 MG amLODIPine Besylate 5 MG amLODIPine Besylate 5 MG No 1{table t} QD amLODIPine Besylate 5 MG Valtrex 1 GM Valtrex 1 GM No 1{table t} QD Valtrex 1 GM Metoprolol Tartrate Metoprolol Tartrate No Metoprolol Tartrate Losartan Potassium 50 MG Losartan Potassium 50 MG No 1{table t} QD Losartan Potassium 50 MG Gabapentin 300 MG Gabapentin 300 MG No 1{capsu le} QD Gabapentin 300 MG amLODIPine Besylate 5 MG amLODIPine Besylate 5 MG No 1{table t} QD amLODIPine Besylate 5 MG Vital Signs Vital Name Observation Time Observation Value Comments S ource height 2023-03-09 08:30:00 71 [in_i] Commo n [facility] weight 2023-03-09 08:30:00 232 [lb_av] Comm on [facility] temperature 2023-03-09 08:30:00 98.3 [degF] Com mon [facility] bmi 2023-03-09 08:30:00 32.35 kg/m2 Comm on [facility] oximetry 2023-03-09 08:30:00 98 % Commo n [facility] respiratory rate 2023-03-09 08:30:00 18 /min [facility] blood pressure systolic 2023-03-09 08:30:00 141 mm[Hg] [facility] blood pressure diastolic 2023-03-09 08:30:00 96 mm[Hg] [facility] Systolic blood pressure 2022-05-14 16:27:00 122 mm[Hg] [facility] Diastolic blood pressure 2022-05-14 16:27:00 82 mm[Hg] [facility] Heart rate 2022-05-14 16:27:00 87 /min [facility] Oxygen saturation in Arterial blood by Pulse oximetry 2022-05-14 16:27:00 97 /min [facility] Body temperature 2022-05-14 16:25:00 36.39 Pennie [facility] Respiratory rate 2022-05-14 16:25:00 18 /min [facility] Body height 2022-05-14 16:25:00 180.3 cm [facility] Body weight 2022-05-14 16:25:00 101.833 kg [facility] BMI 2022-05-14 16:25:00 31.31 kg/m2 [facility] Systolic blood pressure 2022-04-02 17:52:00 156 mm[Hg] [facility] Diastolic blood pressure 2022-04-02 17:52:00 94 mm[Hg] [facility] Heart rate 2022-04-02 17:48:00 81 /min [facility] Body weight 2022-04-02 17:48:00 101.606 kg [facility] BMI 2022-04-02 17:48:00 31.24 kg/m2 [facility] Oxygen saturation in Arterial blood by Pulse oximetry 2022-04-02 17:48:00 96 /min [facility] Systolic blood pressure 2022-03-01 17:00:00 137 mm[Hg] [facility] Diastolic blood pressure 2022-03-01 17:00:00 87 mm[Hg] [facility] Heart rate 2022-03-01 17:00:00 88 /min [facility] Respiratory rate 2022-03-01 17:00:00 16 /min [facility] Oxygen saturation in Arterial blood by Pulse oximetry 2022-03-01 17:00:00 96 /min [facility] Body temperature 2022-03-01 15:49:00 36.72 Pennie [facility] Body height 2022-03-01 15:49:00 180.3 cm [facility] Body weight 2022-03-01 15:49:00 98.431 kg [facility] BMI 2022-03-01 15:49:00 30.27 kg/m2 [facility] blood pressure diastolic 2022-01-14 09:15:00 94 mm[Hg] [facility] height 2022-01-14 09:15:00 71 [in_i] Commo n [facility] weight 2022-01-14 09:15:00 220 [lb_av] Comm on [facility] temperature 2022-01-14 09:15:00 98.6 [degF] Com mon [facility] bmi 2022-01-14 09:15:00 30.68 kg/m2 Comm on [facility] oximetry 2022-01-14 09:15:00 99 % Commo n [facility] respiratory rate 2022-01-14 09:15:00 18 /min Common [facility] blood pressure systolic 2022-01-14 09:15:00 143 mm[Hg] Common [facility] height 2021-10-29 13:30:00 71 [in_i] Commo n [facility] weight 2021-10-29 13:30:00 223.6 [lb_av] Co mmon [facility] temperature 2021-10-29 13:30:00 98.6 [degF] Com mon [facility] bmi 2021-10-29 13:30:00 31.18 kg/m2 Comm on [facility] oximetry 2021-10-29 13:30:00 98 % Commo n [facility] respiratory rate 2021-10-29 13:30:00 18 /min Common [facility] blood pressure systolic 2021-10-29 13:30:00 137 mm[Hg] [facility] blood pressure diastolic 2021-10-29 13:30:00 85 mm[Hg] [facility] Procedures Procedure Date / Time Performed Performing Clinicia n Source PVR 2023-03-09 00:00:00 Common S [facility] ASSIGNMENT OF BENEFITS 2022-04-02 17:41:58 Docto r Unassigned, [place] [facility] EKG-12 LEAD 2022-03-01 17:35:21 Christ Richardson [facility] TROPONIN I 2022-03-01 16:12:00 Christ Richardson [facility] BASIC METABOLIC PANEL (NA, K, CL, CO2, GLUCOSE, BUN, CREATININE, CA) 2022-03-01 16:12:00 Christ Richardson [facility] CBC WITH DIFF 2022-03-01 16:12:00 Christ Richardson [facility] NOTICE OF PRIVACY PRACTICES 2022-03-01 15:43:54 Doctor Unassigned, [place] [facility] CONSENT/REFUSAL FOR DIAGNOSIS AND TREATMENT 2022-03-01 15:43:14 Doctor Unassigned, [place] [facility] Encounters Start Date/Time End Date/Time Encounter Type Admission Type Attending [facility] Facility Care Department Encounter ID Source 2023-07-20 13:52:00 Outpatient FabienneRoque aguilar [facility] [id number] [facility] 2023-05-05 15:29:00 Outpatient Roque Loving [facility] [id number] [facility] 2023-03-09 09:17:00 Outpatient Roque Loving ST[facility] [id number] [facility] 2021-10-29 13:00:02 Outpatient MahadRolando [facility] [id number] [facility] 2023-08-11 00:00:00 2023-08-11 00:00:00 (TEL) [facility] STLC [id number] [facility] 2023-08-03 00:00:00 2023-08-03 00:00:00 (TEL) [facility] STLC [id number] [facility] 2023-05-17 00:00:00 2023-05-17 00:00:00 (TEL) [facility] STLC [id number] [facility] 2023-04-20 00:00:00 2023-04-20 00:00:00 [facility] [id number] 350.1.13.10 4.2.7.2.686 [id number] [facility] 2023-03-15 00:00:00 2023-03-15 00:00:00 (TEL) STLMLC STLMLC [id number] [facility] 2023-03-09 00:00:00 2023-03-09 00:00:00 OFFICE VISIT ESTAB PT LEVEL 5 STLMLC STLMLC [id number] [facility] 2022-12-03 00:00:00 2022-12-03 00:00:00 [facility]ill [facility] [id number] 350.1.13.10 4.2.7.2.686 [id number] [facility] 2022-10-06 00:00:00 2022-10-06 00:00:00 Refill Marci CarcamoHPool [facility] 1.2.840.114 350.1.13.10 4.2.7.2.686 [id number] [facility] 2022-08-20 10:30:00 2022-08-20 10:30:00 Outpatient R MARCI CARCAMO [facility] [id number] [facility] 2022-05-14 08:42:08 2022-05-14 23:59:00 Outpatient R MARCI CARCAMO [facility] [id number] [facility] 2022-05-14 11:00:00 2022-05-14 11:00:00 Office Visit [facility] 1.2.840.114 350.1.13.10 4.2.7.2.686 [id number] [facility] 2022-05-14 00:00:00 2022-05-14 00:00:00 Letter (Out) Marci Carcamo [facility] [id number] 350.1.13.10 4.2.7.2.686 [id number] [facility] 2022-05-12 00:00:00 2022-05-12 00:00:00 Telephone Marci Carcamo [facility] 1.2840.114 350.1.13.10 4.2.7.2.686 [id number] [facility] 2022-05-10 00:00:00 2022-05-10 00:00:00 Telephone Marci Carcamo [facility] 1.2840.114 350.1.13.10 4.2.7.2.686 [id number] [facility] 2022-05-07 08:15:04 2022-05-07 23:59:00 Outpatient R MARCI CARCAMO [facility] [id number] [facility] 2022-04-02 12:24:27 2022-04-02 23:59:00 Outpatient R MARCI CARCAMO [facility] [id number] [facility] 2022-04-02 11:30:00 2022-04-02 12:44:25 Office Visit Marci Carcamo [facility] 1.2840.114 350.1.13.10 4.2.7.2.686 [id number] [facility] 2022-04-02 00:00:00 2022-04-02 00:00:00 Orders Only Doctor Unassigned, [place] [facility] 1.2840.114 350.1.13.10 4.2.7.2.686 [id number] [facility] 2022-03-24 00:00:00 2022-03-24 00:00:00 (TEL) STLMLC STLMLC [id number] [facility] 2022-03-01 09:51:00 2022-03-01 11:49:00 Emergency Christ Richardson [facility] [id number] 350.1.13.10 4.2.7.2.686 [id number] [facility] 2022-03-01 09:51:00 2022-03-01 11:49:00 Emergency X [facility]RIST RICHARDSON [facility] ERT [id number] [facility] 2022-01-14 00:00:00 2022-01-14 00:00:00 OFFICE VISIT EST PT LEVEL 3 STLMLC STLMLC [id number] [facility] 2021-12-22 00:00:00 2021-12-22 00:00:00 (TEL) STLMLC STLMLC [id number] [facility] 2021-12-01 00:00:00 2021-12-01 00:00:00 (TEL) STLMLC STLMLC [id number] [facility] 2021-11-26 00:00:00 2021-11-26 00:00:00 (TEL) STLMLC STLMLC [id number] [facility] 2021-10-29 00:00:00 2021-10-29 00:00:00 OFFICE VISIT NEW PT LEVEL 4 STLMLC STLMLC [id number] [facility] Results Test Description Test Time Test Comments Results Result Co mments Source [facility] (NA, K, CL, CO2, GLUCOSE, BUN, CREATININE, CA)2022-03-01 16:49:00* Test Item Value Reference Range Interpretation Comme nts NA (test code = 6280518653) 135 mmol/L 135-145 K (test code = 7680926704) 4.1 mmol/L 3.5-5.0 CL (test code = 2318051866) 99 mmol/L 98-108 CO2 TOTAL (test code = 5802960808) 25 mmol/L 23-31 AGAP (test code = 5403918314) 2-16 BUN (test code = 7611757554) 18 mg/dL 7-23 GLUCOSE (test code = 9386829484) 98 mg/dL 70-110 CREATININE (test code = 8117289593) 0.96 mg/dL 0.60-1.25 CALCIUM (test code = 0285740745) 9.1 mg/dL 8.6-10.6 eGFR (test code = 4988935819) mL/min/1.73m2 ESTER (test code = ESTER) Association of [...] or urine or abnormalities in imaging tests). [facility] WITH [id number] 16:42:40* Test Item Value Reference Range Interpretation Comme nts WBC (test code = 6690-2) See_Comment [Automated messa ge] The system which generated this result transmitted reference range: 4.20 - 10.70 10*3/?L. The reference range was not used to interpret this result as normal/abnormal. RBC (test code = 789-8) See_Comment [Automated messa ge] The system which generated this result transmitted reference range: 4.26 - 5.52 10*6/?L. The reference range was not used to interpret this result as normal/abnormal. HGB (test code = 718-7) 15.8 g/dL 12.2-16.4 HCT (test code = 4544-3) 42.8 % 38.4-49.3 MCV (test code = 787-2) 85.3 fL 81.7-95.6 MCH (test code = 785-6) 31.5 pg 26.1-32.7 MCHC (test code = 786-4) 36.9 g/dL 31.2-35.0 H RDW-SD (test code = 03294-5) 35.3 fL 38.5-51.6 L RDW-CV (test code = 788-0) 11.4 % 12.1-15.4 L PLT (test code = 777-3) See_Comment [Automated messa ge] The system which generated this result transmitted reference range: 150 - 328 10*3/?L. The reference range was not used to interpret this result as normal/abnormal. MPV (test code = 98666-7) 9.2 fL 9.8-13.0 L NRBC/100 WBC (test code = 0549479206) See_Comment [Automated [employer] ssage] The system which generated this result transmitted reference range: 0.0 - 10.0 /100 WBCs. The reference range was not used to interpret this result as normal/abnormal. NRBC x10^3 (test code = 7577098060) See_Comment [Automated messa ge] The system which generated this result transmitted reference range: 10*3/?L. The reference range was not used to interpret this result as normal/abnormal. GRAN MAT (NEUT) % (test code = 770-8) 86.6 % IMM GRAN % (test code = 3505960912) 0.40 % LYMPH % (test code = 736-9) 6.1 % MONO % (test code = 5905-5) 5.4 % EOS % (test code = 713-8) 1.2 % BASO % (test code = 706-2) 0.3 % GRAN MAT x10^3(ANC) (test code = 7597728177) 9.03 10*3/uL 1.99-6.95 H IMM GRAN x10^3 (test code = 2565272846) 0.04 10*3/uL 0.00-0.06 LYMPH x10^3 (test code = 731-0) 0.64 10*3/uL 1.09-3.23 L MONO x10^3 (test code = 742-7) 0.56 10*3/uL 0.36-1.02 EOS x10^3 (test code = 711-2) 0.13 10*3/uL 0.06-0.53 BASO x10^3 (test code = 704-7) 0.03 10*3/uL 0.01-0.09 Lab Interpretation (test code = 10363-7) Abnormal [facility] Notes Date/Time Note Provider Source 2023-04-20 12:35:19 Images from the original note were not included. Refill approved per cardiology protocol: Cardiovascular: Beta Blockers Lcnqky7204/20/2023 12:21 PM Protocol Details Valid encounter within last 12 months Heart rate within normal limits and completed in the last 12 months ISSIONING MANAGER Selina Keenan MA [facility] 2022-12-03 13:26:41 Formatting of this n ote is different from the original. Images from the original note were not included. Refill approved per cardiology protocol: Cardiovascular: ?Beta Blockers Passed 12/03/2022 12:47 PM Protocol Details Valid encounter within last 12 months Heart rate within normal limits and completed in the last 12 months Selina Keenan MA [facility]"
--- NOTE | 2023-12-04 15:40 | ER ---
Nurse's Notes [facility] Name: Richard Calderon Age: 32 yrs Sex: Male : 1990 Arrival Date: 12/04/2023 Time: 12:36 Bed IW1 Private MD: Diagnosis: Presentation: 12/03 12:50 Chief complaint: Patient states: LUQ pain today. Pt states "I've had this pain before aa5 but I thought today I would come to the hospital and figure out what it is". Coronavirus screen: At this time, the client does not indicate any symptoms associated with coronavirus-19. Ebola Screen: Patient denies travel to an Ebola-affected area in the 21 days before illness onset. Initial Sepsis Screen: Does the patient meet any 2 criteria? No. Patient's initial sepsis screen is negative. Does the patient have a suspected source of infection? No. Patient's initial sepsis screen is negative. Risk Assessment: Do you want to hurt yourself or someone else? Patient reports no desire to harm self or others. Onset of symptoms was November 2023. 12:50 Acuity: WILBER 3 aa5 12:50 Method Of Arrival: Ambulatory aa5 Historical: - Allergies: 12:51 Sulfa (Sulfonamide Antibiotics); aa5 - Home Meds: 12:51 atorvastatin 20 mg Oral tablet 1 tab daily [Active]; metoprolol tartrate 50 mg Oral aa5 tablet 1 tab daily [Active]; Lisinopril Oral [Active]; - PMHx: 12:51 High Cholesterol; Hypertension; seasonal allergies; aa5 - PSHx: 12:51 right knee; aa5 - Immunization history:: Adult Immunizations unknown. - Infectious Disease History:: Denies. - Social history:: Smoking status: Patient reports use of chewing tobacco. Vital Signs: 12:50 BP 145 / 98; Pulse 72; Resp 18 S; Temp 97.8(TE); Pulse Ox 98% on R/A; Weight 104.33 kg aa5 (R); Height 5 ft. 11 in. (R); 12:50 Body Mass Index 32.08 (104.33 kg, 180.34 cm) aa5 ED Course: 12:38 Patient arrived in ED. mr 12:50 Arm band placed on. aa5 12:51 Triage completed. aa5 12:53 Otis, Selina, MD is Attending Physician. sd2 14:53 Umesh Vanessa, RN is Primary Nurse. bp 14:55 Patient's name was called from ER lobby. No response. aa5 15:10 Patient's name was called from ER lobby. No response. aa5 Administered Medications: No medications were administered Outcome: 15:40 Patient left the ED. Signatures: Radha Bobby, Reg Reg mr ShemarSarah, RN RN aa5 Rachel Liriano, MYA RN Umesh Vanessa, RN RN Selina Berg MD MD sd2 Corrections: (The following items were deleted from the chart) 12:52 12:50 Chief complaint: Patient states: LUQ pain today aa5 aa5
[2023-12-04 15:43] VITALS: BP 145/98; TEMP 97.8; O2SAT 98
== END 2023-12-04 15:40 | disposition left against medical advice (07) ==
LOC: ER 12:36
DX: Z53.21 Procedure and treatment not carried out due to patient leaving prior to being seen by health care provider (principal)
CPT/HCPCS: 99281

== ENCOUNTER 2024-11-18 00:04 | Emergency (ER) | payer BC ==
--- OUTSIDE RECORDS SUMMARY | 2024-11-18 00:08 | XMS REPORT | Continuity of Care Document ---
Author Name Unknown Address [address] [facility] [address] [place] [address] [facility] Address [address] [facility] [place] [address] Care Team Providers Care Insurance Processing Clerk Name Role Phone ROQUE SIDDIQI Primary Care Physician Unavailab Roque Rosales Attending Clinician Unavailable Rolando Tobin Attending Clinician Unavailable ELIZABETH DUPONT Attending Clinician Unavailable ELIZABETH DUPONT Attending Clinician Unavailable Elizabeth Ware Attending Clinician Carlos Alberto ARIZMENDI, Sendil K.H. Attending Clinician [phone] CARLOS ALBERTO, SENDIL K.H. Attending Clinician Unavailsigifredo elaine Doctor Unassigned, [place] Attending Clinician U Christ Najera MD Attending Clinician CHRIST RICHARDSON Attending Clinician Unavailable CARLOS ALBERTO, SENDIL K.H. Admitting Clinician Unavailsigifredo elaine Payers Payer Name Policy Type Policy Number Effective Date Expirati on Date Source [facility] [id number] 2024 00:00:00 Problems Condition Name Condition Details Condition Category Status Onset Date Resolution Date Last Treatment Date Treating Clinician Comments Source [id number] Epididymal pain Problem Common [facility] [id number] Epididymit is Problem Common [facility] [id number] Kidney stone Problem Common [facility] [id number] Urethritis Problem Comm on [facility] [id number] Right flank pain Problem [facility] [id number] Lower urinary tract symptoms (LUTS) Problem [facility] [id number] Nonspecifi c urethritis Problem [facility] [id number] Mycoplasma infection, unspecifie d site Problem [facility] [id number] Left testicular pain Problem [facility] [id number] Right testicular pain Problem [facility] [id number] 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 [facility] [id number] Scrotal pain Problem [facility] [id number] LLQ pain Problem Commo n [facility] No known active problems No known active problems Disease [facility] Allergies, Adverse Reactions, Alerts Allergy Name Allergy Type Status Severity Reaction(s) Onset Date Inactive Date Treating Clinician Comments Source Sulfa (Sulfona mide Antibiot ics) Propensi ty to adverse reaction s Active Nausea and/or Vomiting 2021-04 00:00: 00 [facility] SULFA (SULFONA MIDE ANTIBIOT ICS) Drug Class Active N/V 2021-04 00:00: 00 [facility] NO KNOWN ALLERGIE S Drug Class Active [facility] Social History Social Habit Start Date Stop Date Quantity Comments Source Gender identity [facility] History of tobacco use Cigarette Smoker [facility] Exposure to SARS-CoV-2 (event) 2022-05-04 00:00:00 2022-05-14 08:39:00 Not sure [facility] History of Social function 2022-05-14 00:00:00 2022-05-14 00:00:00 [facility] Tobacco use and exposure 2022-04-02 00:00:00 2022-04-02 00:00:00 Smokeless tobacco non-user [facility] Sex assigned at 1990 00:00:00 1990 00:00:00 [facility] Smoking Status Start Date Stop Date Source Tobacco smoking consumption unknown [facility] Never Smoker [facility] Former Smoker 2023-03-09 00:00:00 2023-03-09 00:00:00 [facility] Medications Ordered Medication Name Filled Medication Name Start Date Stop Date Current Medication? Ordering Clinician Indication Dosage Frequency Signature (SIG) Comments Components Source ibuprofen (MOTRIN) tablet 800 mg 06-10 22:45: 00 06-10 23:19 :00 No 800mg 800 mg, Oral, ONCE, 1 dose, On 06/10/24 at 1645, MAURICIO [facility] HYDROcodone -acetaminop hen (NORCO 5) tablet 1 tablet 06-10 22:45: 00 06-10 23:19 :00 No 1{tbl} 1 tablet, Oral, ONCE, 1 dose, On 06/10/24 at 1645, MAURICIO [facility] amoxicillin -pot clavulanate 875-125 mg per tablet 06-10 00:00: 00 Yes [id number] 1{tbl} Take 1 tablet by mouth every 12 (twelve) hours. [facility] ibuprofen 800 mg tablet 06-10 00:00: 00 Yes [id number] 800mg Take 1 tablet by mouth 3 (three) times daily as needed for Pain (scale 4-6). [facility] acetaminoph en-codeine 300-30 mg tablet 06-10 00:00: 00 06-18 04:59 :00 No [id number] 1{tbl} Take 1 tablet by mouth every 6 (six) hours as needed for Pain (scale 7-10) for up to 7 days. Indication s: acute pain [facility] Azithromyci n 500 MG Azithromyci n 500 MG 5-06 00:00: 00 No 1{table t} QD Azithromyc in 500 MG Uroxatral 10 MG Uroxatral 10 MG 4-10 00:00: 00 No 1{table t_at_be dtime} QD Uroxatral 10 MG METOPROLOL SUCCINATE XL 25 mg 24 hr tablet 2024-0 1-10 00:00: 00 Yes [id number] 25mg TAKE 1 TABLET BY MOUTH IN THE MORNING AND 1 TABLET IN THE EVENING [facility] METOPROLOL SUCCINATE XL 25 mg 24 hr tablet 8-25 00:00: 00 Yes [id number] 25mg TAKE 1 TABLET BY MOUTH IN THE MORNING AND 1 TABLET IN THE EVENING [facility] METOPROLOL SUCCINATE XL 25 mg 24 hr tablet 6-28 00:00: 00 Yes [id number] 25mg TAKE 1 TABLET BY MOUTH IN THE MORNING AND 1 TABLET IN THE EVENING [facility] metoprolol succinate XL 25 mg 24 hr tablet 1-30 00:00: 00 10-06 00:00 :00 No [id number] 25mg Take 1 tablet by mouth in the morning and 1 tablet in the evening. [facility] atorvastati n 40 mg tablet 17 00:00: 00 Yes 40mg Take 40 mg by mouth in the morning. [facility] losartan 50 mg tablet 17 00:00: 00 Yes 50mg Take 50 mg by mouth in the morning. [facility] No known medications 2021-04 13:11: 44 No No known medication s [facility] No known medications 2021-04 09:55: 17 No No known medication s [facility] Doxycycline Hyclate 100 MG Doxycycline Hyclate 100 MG -13 00:00: 00 01-19 00:00 :00 No 1{capsu le} BID Doxycyclin e Hyclate 100 MG Doxycycline Hyclate 100 MG Doxycycline Hyclate 100 MG 9-13 00:00: 00 01-19 00:00 :00 No 1{capsu le} BID Doxycyclin e Hyclate 100 MG Alfuzosin HCl ER 10 MG Alfuzosin HCl ER 10 MG -21 00:00: 00 04-26 00:00 :00 No 1{table t_immed iately_ after_t he_same _meal} QD Alfuzosin HCl ER 10 MG Alfuzosin HCl ER 10 MG Alfuzosin HCl ER 10 MG 2021-0 10-29 00:00: 00 04-26 00:00 :00 No 1{table t_immed iately_ after_t he_same _meal} QD Alfuzosin HCl ER 10 MG Alfuzosin HCl ER 10 MG Alfuzosin HCl ER 10 MG 2021-0 10-29 00:00: 00 04-26 00:00 :00 No [...] Observation Time Observation Value Comments S ource Systolic blood pressure 2024-06-10 23:54:28 181 mm[Hg] [facility] Diastolic blood pressure 2024-06-10 23:54:28 120 mm[Hg] [facility] Heart rate 2024-06-10 23:54:28 71 /min [facility] Body temperature 2024-06-10 23:54:28 37 Pennie [facility] Respiratory rate 2024-06-10 23:54:28 16 /min [facility] Oxygen saturation in Arterial blood by Pulse oximetry 2024-06-10 23:54:28 100 /min [facility] Body height 2024-06-10 22:31:00 180.3 cm [facility] Body weight 2024-06-10 22:31:00 104.327 kg [facility] BMI 2024-06-10 22:31:00 32.08 kg/m2 [facility] height 2023-03-09 08:30:00 71 [in_i] Commo n [facility] weight 2023-03-09 08:30:00 232 [lb_av] Comm on [facility] temperature 2023-03-09 08:30:00 98.3 [degF] Com mon [facility] bmi 2023-03-09 08:30:00 32.35 kg/m2 Comm on [facility] oximetry 2023-03-09 08:30:00 98 % Commo n [facility] respiratory rate 2023-03-09 08:30:00 18 /min [facility] blood pressure systolic 2023-03-09 08:30:00 141 mm[Hg] [facility] blood pressure diastolic 2023-03-09 08:30:00 96 mm[Hg] [facility] Systolic blood pressure 2022-05-14 16:27:00 122 mm[Hg] [facility] Diastolic blood pressure 2022-05-14 16:27:00 82 mm[Hg] [facility] Heart rate 2022-05-14 16:27:00 87 /min [facility] Oxygen saturation in Arterial blood by Pulse oximetry 2022-05-14 16:27:00 97 /min [facility] Body temperature 2022-05-14 16:25:00 36.39 Pennie [facility] Respiratory rate 2022-05-14 16:25:00 18 /min [facility] Body height 2022-05-14 16:25:00 180.3 cm [facility] Body weight 2022-05-14 16:25:00 101.833 kg [facility] BMI 2022-05-14 16:25:00 31.31 kg/m2 [facility] Systolic blood pressure 2022-04-02 17:52:00 156 mm[Hg] [facility] Diastolic blood pressure 2022-04-02 17:52:00 94 mm[Hg] [facility] Heart rate 2022-04-02 17:48:00 81 /min [facility] Body weight 2022-04-02 17:48:00 101.606 kg [facility] BMI 2022-04-02 17:48:00 31.24 kg/m2 [facility] Oxygen saturation in Arterial blood by Pulse oximetry 2022-04-02 17:48:00 96 /min [facility] Systolic blood pressure 2022-03-01 17:00:00 137 mm[Hg] [facility] Diastolic blood pressure 2022-03-01 17:00:00 87 mm[Hg] [facility] Heart rate 2022-03-01 17:00:00 88 /min [facility] Respiratory rate 2022-03-01 17:00:00 16 /min [facility] Oxygen saturation in Arterial blood by Pulse oximetry 2022-03-01 17:00:00 96 /min [facility] Body temperature 2022-03-01 15:49:00 36.72 [place]ie [facility] Body height 2022-03-01 15:49:00 180.3 cm [facility] Body weight 2022-03-01 15:49:00 98.431 kg [facility] BMI 2022-03-01 15:49:00 30.27 kg/m2 [facility] height 2022-01-14 09:15:00 71 [in_i] Commo n [facility] weight 2022-01-14 09:15:00 220 [lb_av] Comm on [facility] temperature 2022-01-14 09:15:00 98.6 [degF] Com mon [facility] bmi 2022-01-14 09:15:00 30.68 kg/m2 Comm on [facility] oximetry 2022-01-14 09:15:00 99 % Commo n [facility] respiratory rate 2022-01-14 09:15:00 18 /min [facility] blood pressure systolic 2022-01-14 09:15:00 143 mm[Hg] [facility] blood pressure diastolic 2022-01-14 09:15:00 94 mm[Hg] [facility] respiratory rate 2021-10-29 13:30:00 18 /min [facility] blood pressure systolic 2021-10-29 13:30:00 137 mm[Hg] [facility] blood pressure diastolic 2021-10-29 13:30:00 85 mm[Hg] [facility] height 2021-10-29 13:30:00 71 [in_i] Commo n [facility] weight 2021-10-29 13:30:00 223.6 [lb_av] Co mmon [facility] temperature 2021-10-29 13:30:00 98.6 [degF] Com mon [facility] bmi 2021-10-29 13:30:00 31.18 kg/m2 Comm on [facility] oximetry 2021-10-29 13:30:00 98 % Commo n [facility] Procedures Procedure Date / Time Performed Performing Clinicia n Source PVR 2023-03-09 00:00:00 [facility] ASSIGNMENT OF BENEFITS 2022-04-02 17:41:58 Docto r Unassigned, [place] [facility] EKG-12 LEAD 2022-03-01 17:35:21 Christ Richardson [facility] TROPONIN I 2022-03-01 16:12:00 Christ Richardson [facility] BASIC METABOLIC PANEL (NA, K, CL, CO2, GLUCOSE, BUN, CREATININE, CA) 2022-03-01 16:12:00 Christ Richardson [facility] CBC WITH DIFF 2022-03-01 16:12:00 Christ Richardson [facility] NOTICE OF PRIVACY PRACTICES 2022-03-01 15:43:54 Doctor Unassigned, [place] [facility] CONSENT/REFUSAL FOR DIAGNOSIS AND TREATMENT 2022-03-01 15:43:14 Doctor Unassigned, [place] [facility] Encounters Start Date/Time End Date/Time Encounter Type Admission Type Attending Clinicians Care Facility Care Department Encounter ID Source 2023-07-20 13:52:00 Outpatient FabienneRoque aguilar [facility] [id number] [facility] 2023-05-05 15:29:00 Outpatient Fabienne Roque [facility] [id number] [facility] 2023-03-09 09:17:00 Outpatient Fabienne Roque [facility] [id number] [facility] 2021-10-29 13:00:02 Outpatient Rolando Tobin [facility] [id number] [facility] 2024-06-10 16:34:00 2024-06-10 17:59:00 Emergency X ELIZABETH DUPONT [facility]IC[facility] ERT [id number] [facility] 2024-06-10 16:34:00 2024-06-10 17:59:00 Emergency Billnadege Elizabeth Bhumika [facility] 1.2.840.114 350.1.13.10 4.2.7.2.686 [id number] [facility] 2023-08-11 00:00:00 2023-08-11 00:00:00 (TEL) STLMLC STLMLC [id number] [facility] 2023-08-03 00:00:00 2023-08-03 00:00:00 (TEL) STLMLC STLMLC [id number] [facility] 2023-05-17 00:00:00 2023-05-17 00:00:00 (TEL) STLMLC STLMLC [id number] [facility] 2023-04-20 00:00:00 2023-04-20 00:00:00 Refill Marci CarcamoHPool [facility] 1.2.840.114 350.1.13.10 4.2.7.2.686 [id number] [facility] 2023-03-15 00:00:00 2023-03-15 00:00:00 (TEL) STLMLC STLMLC [id number] [facility] 2023-03-09 00:00:00 2023-03-09 00:00:00 OFFICE VISIT ESTAB PT LEVEL 5 STLMLC STLMLC [id number] [facility] 2022-12-03 00:00:00 2022-12-03 00:00:00 Marci IbarraHPool [facility] 1.2.840.114 350.1.13.10 4.2.7.2.686 [id number] [facility] 2022-10-06 00:00:00 2022-10-06 00:00:00 RefMarci PérezHPool [facility] 1.2.840.114 350.1.13.10 4.2.7.2.686 [id number] [facility] 2022-08-20 10:30:00 2022-08-20 10:30:00 Outpatient R CARLOS ALBERTO MARCI [facility] [id number] [facility] 2022-05-14 08:42:08 2022-05-14 23:59:00 Outpatient R CARLOS ALBERTO MARCI [facility] [id number] [facility] 2022-05-14 11:00:00 2022-05-14 11:00:00 Office Visit Marci Carcamo [facility] 1.2.840.114 350.1.13.10 4.2.7.2.686 [id number] [facility] 2022-05-14 00:00:00 2022-05-14 00:00:00 Letter (Out) Marci Carcamo [facility] 1.2.840.114 350.1.13.10 4.2.7.2.686 [id number] [facility] 2022-05-12 00:00:00 2022-05-12 00:00:00 Telephone Marci Carcamo [facility] 1.2.840.114 350.1.13.10 4.2.7.2.686 [id number] [facility] 2022-05-10 00:00:00 2022-05-10 00:00:00 Telephone Marci Carcamo [facility] 1.2.840.114 350.1.13.10 4.2.7.2.686 [id number] [facility] 2022-05-07 08:15:04 2022-05-07 23:59:00 Outpatient R MARCI CARCAMO [facility] [id number] [facility] 2022-04-02 12:24:27 2022-04-02 23:59:00 Outpatient R CARLOS ALBERTO MARCI [facility] [id number] [facility] 2022-04-02 11:30:00 2022-04-02 12:44:25 Office Visit Marci Carcamo [facility] 1.2.840.114 350.1.13.10 4.2.7.2.686 [id number] [facility] 2022-04-02 00:00:00 2022-04-02 00:00:00 Orders Only Doctor Unassigned, [place] [facility] 1.2.840.114 350.1.13.10 4.2.7.2.686 [id number] [facility] 2022-03-24 00:00:00 2022-03-24 00:00:00 (TEL) STLC STLMLC [id number] [facility] 2022-03-01 09:51:00 2022-03-01 11:49:00 Emergency Christ Richardson [facility] 1.2.840.114 350.1.13.10 4.2.7.2.686 [id number] [facility] 2022-03-01 09:51:00 2022-03-01 11:49:00 Emergency X CHRIST RICHARDSON [facility] ERT [id number] [facility] 2022-01-14 00:00:00 2022-01-14 00:00:00 OFFICE VISIT EST PT LEVEL 3 STLMLC STLMLC [id number] [facility] 2021-12-22 00:00:00 2021-12-22 00:00:00 (TEL) STLC STLMLC [id number] [facility] 2021-12-01 00:00:00 2021-12-01 00:00:00 (TEL) STLMLC STLMLC [id number] [facility] 2021-11-26 00:00:00 2021-11-26 00:00:00 (TEL) STLMLC STLMLC [id number] [facility] 2021-10-29 00:00:00 2021-10-29 00:00:00 OFFICE VISIT NEW PT LEVEL 4 STLMLC STLMLC [id number] [facility] Results Test Description Test Time Test Comments Results Result Co mments Source [facility] METABOLIC PANEL (NA, K, CL, CO2, GLUCOSE, BUN, CREATININE, CA)2022-03-01 16:49:00* Test Item Value Reference Range Interpretation Comme nts NA (test code = 5454741085) 135 mmol/L 135-145 K (test code = 5247630512) 4.1 mmol/L 3.5-5.0 CL (test code = 3174164395) 99 mmol/L 98-108 CO2 TOTAL (test code = 7218913461) 25 mmol/L 23-31 AGAP (test code = 7477984058) 2-16 BUN (test code = 9578255686) 18 mg/dL 7-23 GLUCOSE (test code = 7419615899) 98 mg/dL 70-110 CREATININE (test code = 5182181287) 0.96 mg/dL 0.60-1.25 CALCIUM (test code = 8211102498) 9.1 mg/dL 8.6-10.6 eGFR (test code = 5002453631) mL/min/1.73m2 ESTER (test code = ESTER) Association [...] or urine or abnormalities in imaging tests). [facility] WITH [id number] 16:42:40* Test Item Value Reference Range Interpretation Comme nts WBC (test code = 6690-2) See_Comment [[employer]] The system which generated this result transmitted reference range: 4.20 - 10.70 10*3/?L. The reference range was not used to interpret this result as normal/abnormal. RBC (test code = 789-8) See_Comment [[employer]] The system which generated this result transmitted [...] g/dL 31.2-35.0 H RDW-SD (test code = 28762-1) 35.3 fL 38.5-51.6 L RDW-CV (test code = 788-0) 11.4 % 12.1-15.4 L PLT (test code = 777-3) See_Comment [Automated messa ge] The system which generated this result transmitted reference range: 150 - 328 10*3/?L. The reference range was not used to interpret this result as normal/abnormal. MPV (test code = 75629-9) 9.2 fL 9.8-13.0 L NRBC/100 WBC (test code = 6205236178) See_Comment [Automated me ssage] The system which generated this result transmitted reference range: 0.0 - 10.0 /100 WBCs. The reference range was not used to interpret this result as normal/abnormal. NRBC x10^3 (test code = 0376659677) See_Comment [Automated messa ge] The system which generated this result transmitted reference range: 10*3/?L. The reference range was not used to interpret this result as normal/abnormal. GRAN MAT (NEUT) % (test code = 770-8) 86.6 % IMM GRAN % (test code = 0938251190) 0.40 % LYMPH % (test code = 736-9) 6.1 % MONO % (test code = 5905-5) 5.4 % EOS % (test code = 713-8) 1.2 % BASO % (test code = 706-2) 0.3 % GRAN MAT x10^3(ANC) (test code = 4095194076) 9.03 10*3/uL 1.99-6.95 H IMM GRAN x10^3 (test code = 8297250974) 0.04 10*3/uL 0.00-0.06 LYMPH x10^3 (test code = 731-0) 0.64 10*3/uL 1.09-3.23 L MONO x10^3 (test code = 742-7) 0.56 10*3/uL 0.36-1.02 EOS x10^3 (test code = 711-2) 0.13 10*3/uL 0.06-0.53 BASO x10^3 (test code = 704-7) 0.03 10*3/uL 0.01-0.09 Lab Interpretation (test code = 01996-9) Abnormal [facility] Notes Date/Time Note Provider Source 2024-06-10 17:58:28 Patient given discharge instructions on toothache. Given prescriptions X 3 for ibuprofen, tylenol #3 and augmentin. Advised to follow up with dentist. Pt left ER ambulatory, no signs of distress. OLEER PACKER [facility] 2024-06-10 16:29:41 Patient states: "It's been bad. I've been needing a root canal or it pulled. Then Tuesday I bit into a kolache. It felt like I bit down on a marble. The pain was coming and going and managed with tylenol, aleve and oral gel. Now the only thing that's helping is clove oil" OLEER PACKER Mary Bonilla RN [facility] 2023-04-20 12:35:19 Images from the original note were not included. Refill approved per cardiology protocol: Cardiovascular: Beta Blockers [id number]/20/2023 12:21 PM Protocol Details Valid encounter within last 12 months Heart rate within normal limits and completed in the last 12 months OLEER PACKER Selina Keenan MA [facility] 2022-12-03 13:26:41 Formatting of this n ote is different from the original. Images from the original note were not included. Refill approved per cardiology protocol: Cardiovascular: ?Beta Blockers Passed 12/03/2022 12:47 PM Protocol Details Valid encounter within last 12 months Heart rate within normal limits and completed in the last 12 months Selina Keenan MA [facility]
[2024-11-18] MEDS ORDERED: HYDROCODONE/APAP 5/325 MG TAB ONE (00:32)
--- NOTE | 2024-11-18 04:22 | RAD REPORT ---
EXAM: XR Left Shoulder Complete, 2 or More Views CLINICAL HISTORY: PAIN TECHNIQUE: Two or more views of the left shoulder. COMPARISON: No relevant prior studies available. FINDINGS: Bones/joints: Unremarkable. No acute fracture. No dislocation. Soft tissues: Unremarkable. IMPRESSION: No acute injury. Electronically signed by: Caden Villegas MD 11/18/2024 04:17 AM CDT RP Due to temporary technical issues with the PACS/[employer] reporting system, reports are being ezequiel d by the in-house radiologist without review as a courtesy to ensure prompt reporting the interpreting radiologist is fully responsible for the content of the report. Transcribed Date/Time: 11/18/2024 4:21 AM
--- NOTE | 2024-11-18 04:30 | EDPHYS ---
Physician Documentation [facility] Name: Richard Calderon Age: 33 yrs Sex: Male : 1990 Arrival Date: 11/18/2024 Time: 00:04 Bed 13 Private MD: ED Physician Cristino Marvin HPI: 11/18 02:17 This 33 yrs old Male presents to ER via Ambulatory with complaints of Arm Pain - left. ms3 02:17 33-year-old male with past medical history of hyperlipidemia, hypertension, seasonal ms3 allergies presents to the emergency department for left shoulder pain that began after sleeping on his arm last night. Patient states he is taken Advil and Tylenol with codeine without relief. Patient denies trauma to the arm. He denies numbness, weakness.. Historical: - Allergies: 00:31 Sulfa (Sulfonamide Antibiotics); vc1 - Home Meds: 00:31 metoprolol tartrate 50 mg Oral tablet 1 tab daily [Active]; vc1 - PMHx: 00:31 High Cholesterol; Hypertension; seasonal allergies; vc1 - PSHx: 00:31 right knee; vc1 - Immunization history:: Client reports having NOT received the Covid vaccine. - Infectious Disease History:: Denies. - Social history:: Smoking status: Reported history of juuling and/or vaping. ROS: 02:17 Constitutional: Negative for fever, and chills. Cardiovascular: Negative for chest ms3 pain, and palpitations. Respiratory: Negative for shortness of breath, cough, wheezing, and pleuritic chest pain, Abdomen/GI: Negative for abdominal pain, nausea, vomiting, diarrhea, and constipation, 02:17 MS/extremity: Positive for Left shoulder pain, Exam: 02:17 Constitutional: This is a well developed, well nourished patient who is awake, alert, ms3 and in no acute distress. Cardiovascular: Regular rate and rhythm with a normal S1 and S2. No gallops, murmurs, or rubs. Normal PMI, no JVD. No pulse deficits. Respiratory: Lungs have equal breath sounds bilaterally, clear to auscultation and percussion. No rales, rhonchi or wheezes noted. No increased work of breathing, no retractions or nasal flaring. Abdomen/GI: Soft, non-tender, with normal bowel sounds. No distension or tympany. No guarding or rebound. No evidence of tenderness throughout. 02:17 Musculoskeletal/extremity: Extremities: noted in the Left shoulder: pain, Posterior shoulder tenderness, Vital Signs: 00:30 Weight 99.79 kg; Height 5 ft. 11 in. ; Pain 5/10; vc1 00:32 BP 166 / 101; Pulse 88; Resp 16; Temp 97.4; Pulse Ox 98% ; vc1 00:30 Body Mass Index 30.68 (99.79 kg, 180.34 cm) vc1 00:30 Pain Scale: Adult vc1 MDM: 00:26 Medical Screening Exam initiated ms3 02:17 Differential diagnosis: dislocation, closed fracture, tendonitis, Radiculopathy. ms3 04:29 Data reviewed: vital signs, nurses notes, radiologic studies, and as a result, I will ms3 discharge patient. I considered the following discharge prescriptions or medication management in the emergency department Medications were administered in the Emergency Department. See MAR. Independent interpretation of the following test(s) in the Emergency Department X-Ray: My interpretation is Left shoulder X-ray images reviewed by me did not reveal fracture or dislocation. Counseling: I had a detailed discussion with the patient and/or guardian regarding the historical points, exam findings, and any diagnostic results supporting the discharge/admit diagnosis, radiology results, the need for outpatient follow up, to return to the emergency department if symptoms worsen or persist or if there are any questions or concerns that arise at home. Special discussion: I discussed with the patient/guardian in detail that at this point there is no indication for admission to the hospital. It is understood, however, that if the symptoms persist or worsen the patient needs to return immediately for re-evaluation. ED course: Discussed negative shoulder x-ray with patient. Patient to follow-up with Dr. Hampton in 2 to 3 days. Patient understands and agrees with plan. All questions were answered. Return precautions discussed include worsening symptoms, or any other concerns.. 08 00:27 Order name: Shoulder Left (2 View) XRAY ms3 11/18 04:30 Order name: Sling; Complete Time: 04:42 ms3 Administered Medications: 00:42 Drug: HYDROcodone-acetaminophen PO 5 mg-325 mg 1 tabs PO once Route: PO; vc1 01:30 Follow up: Response: No adverse reaction; Pain is unchanged, physician notified jb4 Disposition Summary: 11/18/24 04:29 Discharge Ordered Notes: Location: Home ms3 Condition: Stable ms3 Diagnosis - Pain in left shoulder ms3 Followup: ms3 - With: Jitendra Hampton MD - When: 2 - 3 days - Reason: Recheck today's complaints Discharge Instructions: - Discharge Summary Sheet ms3 - Shoulder Pain, [id number] ms3 Forms: - Medication Reconciliation Form ms3 - Antibiotic Education ms3 - Prescription Opioid Use ms3 - Patient Portal Instructions ms3 - Leadership Thank You Letter ms3 Prescriptions: - Ibuprofen 600 mg Oral Tablet - take 1 tablet ORAL route every 6 hours As needed take with food; 30 tablet; ms3 Refills: 0, Product Selection Permitted Signatures: Dispatcher [employer] Cristino Rutherford DO DO ms3 Isis Chandra RN RN vc1 Andrew Ambriz RN jb4
--- NOTE | 2024-11-18 04:30 | ER ---
Nurse's Notes [facility] Name: Richard Calderon Age: 33 yrs Sex: Male : 1990 Arrival Date: 11/18/2024 Time: 00:04 Bed 13 Private MD: Diagnosis: Pain in left shoulder Presentation: 11/18 00:30 Chief complaint: Patient states: Left shoulder pain after falling asleep on shoulder. vc1 Coronavirus screen: At this time, the client does not indicate any symptoms associated with coronavirus-19. Ebola Screen: Patient negative for fever greater than or equal to 101.5 degrees Fahrenheit, and additional compatible Ebola Virus Disease symptoms Patient denies exposure to infectious person. Patient denies travel to an Ebola-affected area in the 21 days before illness onset. No symptoms or risks identified at this time. Initial Sepsis Screen:. Risk Assessment: Do you want to hurt yourself or someone else? Patient reports no desire to harm self or others. Onset of symptoms was November 17, 2024 at 05:30. 00:30 Method Of Arrival: Ambulatory vc1 00:30 Acuity: WILBER 4 vc1 00:34 Initial Sepsis Screen: Does the patient meet any 2 criteria? No. Patient's initial vc1 sepsis screen is negative. Does the patient have a suspected source of infection? No. Patient's initial sepsis screen is negative. Historical: - Allergies: 00:31 Sulfa (Sulfonamide Antibiotics); vc1 - Home Meds: 00:31 metoprolol tartrate 50 mg Oral tablet 1 tab daily [Active]; vc1 - PMHx: 00:31 High Cholesterol; Hypertension; seasonal allergies; vc1 - PSHx: 00:31 right knee; vc1 - Immunization history:: Client reports having NOT received the Covid vaccine. - Infectious Disease History:: Denies. - Social history:: Smoking status: Reported history of juuling and/or vaping. Screenin:35 Abuse screen: Denies threats or abuse. Nutritional screening: No deficits noted. vc1 Tuberculosis screening: No symptoms or risk factors identified. 04:42 [facility] ED Fall Risk Assessment (Adult) History of falling in the last 3 months, jb4 including since admission No falls in past 3 months (0 pts) Confusion or Disorientation No (0 pts) Intoxicated or Sedated No (0 pts) Impaired Gait No (0 pts) Mobility Assist Device Used No (0 pt) Altered Elimination No (0 pt) Score/Fall Risk Level 0 - 2 = Low Risk Oriented to surroundings, Maintained a safe environment. Assessment: 00:45 General: Appears in no apparent distress. comfortable, Behavior is calm, cooperative, jb4 appropriate for age. Pain: Complains of pain in left arm Pain does not radiate. Pain currently is 5 out of 10 on a pain scale. Neuro: Level of Consciousness is awake, alert, obeys commands, Oriented to person, place, time, situation. Cardiovascular: Patient's skin is warm and dry. Respiratory: Airway is patent Respiratory effort is even, unlabored, Respiratory pattern is regular, symmetrical. Derm: Skin is intact, Skin is pink, warm \T\ dry. Musculoskeletal: Circulation, motion, and sensation intact. Range of motion: intact in all extremities. 01:30 Reassessment: Pt reports pain meds are not helping, provider notified, no new orders at jb4 this time. 02:00 Reassessment: Patient appears in no apparent distress at this time. Patient and/or jb4 family updated on plan of care and expected duration. Pain level reassessed. Patient is alert, oriented x 3, equal unlabored respirations, skin warm/dry/pink. 03:00 Reassessment: Patient appears in no apparent distress at this time. Patient and/or ss12 family updated on plan of care and expected duration. Pain level reassessed. Patient is alert, oriented x 3, equal unlabored respirations, skin warm/dry/pink. 04:18 Reassessment: Patient appears in no apparent distress at this time. Patient and/or ss12 family updated on plan of care and expected duration. Pain level reassessed. Patient is alert, oriented x 3, equal unlabored respirations, skin warm/dry/pink. 04:42 Reassessment: Patient appears in no apparent distress at this time. Patient and/or jb4 family updated on plan of care and expected duration. Pain level reassessed. Patient is alert, oriented x 3, equal unlabored respirations, skin warm/dry/pink. Vital Signs: 00:30 Weight 99.79 kg; Height 5 ft. 11 in. ; Pain 5/10; vc1 00:32 BP 166 / 101; Pulse 88; Resp 16; Temp 97.4; Pulse Ox 98% ; vc1 00:30 Body Mass Index 30.68 (99.79 kg, 180.34 cm) vc1 00:30 Pain Scale: Adult vc1 ED Course: 00:17 Patient arrived in ED. im 00:19 Cristino Marvin DO is Attending Physician. ms3 00:19 Radha Bah F[facility]-C [facility] kb 00:31 Triage completed. vc1 00:32 Arm band placed on left wrist. vc1 01:08 Shoulder Left (2 View) XRAY In Process Unspecified. EDMS 04:18 Bandar Portillo, RN is Primary Nurse. ss12 04:29 Jitendra Friend MD is Referral Physician. ms3 04:42 Patient has correct armband on for positive identification. Bed in low position. Call jb4 light in reach. Side rails up X 1. Provided Education on: discharge instructions. 04:42 No provider procedures requiring assistance completed. Patient did not have IV access jb4 during this emergency room visit. Administered Medications: 00:42 Drug: HYDROcodone-acetaminophen PO 5 mg-325 mg 1 tabs PO once Route: PO; vc1 01:30 Follow up: Response: No adverse reaction; Pain is unchanged, physician notified jb4 Medication: 00:34 VIS not applicable for this client. vc1 Outcome: 04:29 Discharge ordered by MD. ms3 04:42 Discharged to home ambulatory, jb4 04:42 Condition: stable 04:42 Discharge instructions given to patient, Instructed on discharge instructions, follow up and referral plans. medication usage, Demonstrated understanding of instructions, follow-up care, medications, Prescriptions given X 1, 04:43 Patient left the ED. jb4 Signatures: Dispatcher [employer] EDMS Radha Bah FNP-C FNP-Ckb Bryson, James, RN RN jb4 Cristino Marvin DO DO ms3 Isis Chandra RN RN vc1 Myar Arteaga im Bandar Portillo, MYA RN ss12
== END 2024-11-18 04:43 | disposition home or self-care (01) ==
LOC: ER 00:04
DX: M25.512 Pain in left shoulder (principal)
CPT/HCPCS: 99283